=== PATIENT | female | born 1960 | race Caucasian/White ===

== ENCOUNTER 2020-01-12 22:44 | Emergency (ER) | payer BC ==
[2020-01-12] MEDS ORDERED: Lidocaine 1% 10 ML MDV INJECT ONE ×2 (23:21→23:48)
--- NOTE | 2020-01-13 00:08 | EDM.PDOC ---
ED HPI GENERAL MEDICAL PROBLEM - General Chief Complaint: Laceration Stated Complaint: LEFT HAND LACERATION Time Seen by Provider: 01/12/20 23:01 - History of Present Illness INITIAL COMMENTS - FREE TEXT/NARRATIVE: 59-year-old female presents to the emergency room with a left hand injury. This pleasant but unfortunate female fell on the cement sustaining a good-sized laceration on the ulnar aspect of her left hand. She also scraped her right hand but this is not bothering her too much. She denies any other injuries associated with this unfortunate mishap. She did not bump her head strain her neck and did not sustain any loss of consciousness. She is uncertain when her last tetanus shot was. Left Hand Pain Score (Numeric/FACES): 9 - Related Data Allergies Allergy/AdvReac Type Severity Reaction Status Date / Time Penicillins Allergy Severe Cannot Verified 01/12/20 22:50 Remember Sulfa (Sulfonamide Allergy Severe Cannot Verified 01/12/20 22:50 Antibiotics) Remember Home Meds: Home Meds Aspirin [Halfprin] 81 mg PO DAILY 01/17/16 [History] Hydrochlorothiazide 12.5 mg PO DAILY 01/17/16 [History] Lisinopril 10 mg PO DAILY 01/17/16 [History] Omeprazole [Prilosec] 20 mg PO DAILY #14 capsule. 01/17/16 [Rx] Ondansetron [Zofran ODT] 4 mg PO Q4H 01/17/16 [History] buPROPion [Wellbutrin SR] 300 mg PO DAILY 01/17/16 [History] Past Medical History HEENT History: Reports: Cataract Cardiovascular History: Reports: Hypertension Respiratory History: Reports: Asthma Gastrointestinal History: Reports: GERD Musculoskeletal History: Reports: Fracture - Past Surgical History HEENT Surgical History: Reports: Cataract Surgery GI Surgical History: Reports: Hernia Repair/Other Neurological Surgical History: Reports: Lumbar Spine Social & Family History - Tobacco Use Smoking Status *Q: Current Every Day Smoker Years of Tobacco use: 30 Packs/Tins Daily: 1 - Recreational Drug Use Recreational Drug Use: No ED ROS GENERAL - Review of Systems Review Of Systems: See Below Constitutional: Reports: No Symptoms HEENT: Reports: No Symptoms Respiratory: Reports: No Symptoms Cardiovascular: Reports: No Symptoms Endocrine: Reports: No Symptoms GI/Abdominal: Reports: No Symptoms ED EXAM, SKIN/RASH Exam: See Below Exam Limited By: No Limitations General Appearance: Alert, No Apparent Distress Head: Atraumatic, Normocephalic Neck: Normal Inspection, Supple, Non-Tender, Full Range of Motion Respiratory/Chest: No Respiratory Distress, Lungs Clear, Normal Breath Sounds Cardiovascular: Normal Peripheral Pulses, Regular Rate, Rhythm, No Edema GI/Abdominal: Normal Bowel Sounds, Soft, Non-Tender Extremities: Other (Provisional abrasion on the dorsum of her right wrist. She demonstrates good range of motion neurovascular status of the hand is normal emanation of the left hand shows a 5 cm chevron shaped laceration just proximal to the fifth metacarpal phalangeal joint mostly ulnar aspect has a little palmar involvement. Vascular status of this hand is normal she demonstrates intact ligamentous integrity) ED SKIN PROCEDURES - Laceration/Wound Repair Left Medial Ventral Hand Appearance: Subcutaneous, Stellate, Clean Distal NVT: Neuro & Vascular Intact, No Tendon Injury Anesthetic Type: Digital (Proximal digital type block proximal to the metacarpal phalangeal joint) Local Anesthesia - Lidocaine (Xylocaine): 1% Plain Local Anesthetic Volume: 5cc Skin Prep: Saline Exploration/Debridement/Repair: Wound Explored, In a Bloodless Field, Explored to Base Closed with: Sutures Lac/Wound length In cm: 5 Suture Size: 3-0 # of Sutures: 8 (7 horizontal mattress 1 simple) Suture Type: Nylon # of Sutures: 0 Tetanus Status Addressed: Yes (Tetanus was updated today) Complications: No Course - Vital Signs Last Recorded V/S: Last Vital Signs Temp 36.2 C 01/12/20 22:50 Pulse 85 01/12/20 23:17 Resp 18 01/12/20 23:17 BP 167/110 H 01/12/20 23:17 Pulse Ox 94 L 01/12/20 23:17 - Orders/Labs/Meds Meds: Medications Discontinued Medications Generic Name Dose Route Start Last Admin Trade Name Freq PRN Reason Stop Dose Admin Lidocaine HCl 10 ml 01/12/20 23:21 01/12/20 23:25 Xylocaine 1% INJECT 01/12/20 23:22 10 ml ONETIME ONE Administration Lidocaine HCl 10 ml 01/12/20 23:48 01/12/20 23:54 Xylocaine 1% INJECT 01/12/20 23:49 10 ml ONETIME ONE Administration Departure - Departure Time of Disposition: 00:28 Disposition: Home, Self-Care 01 Clinical Impression: Laceration of left hand - Discharge Information Referrals: Sabrina Bobby PA-C [Primary Care Provider] - Forms: ED Department Discharge Additional Instructions: Return to the emergency room with any questions problems or worsening symptoms. Return with any signs of infection. Keep the wound absolutely clean and dry for the next 48 hours then you can let water gently roll over the area but only for a few seconds and then gently dab dry. Wear the splint for at least 1 week and then advance activity slowly and gently. After the sutures are removed in 12 to 14 days wear the splint again for another week and then advance activity slowly and gently. Sepsis Event Note - Evaluation Sepsis Screening Result: No Definite Risk - Focused Exam Vital Signs: Vital Signs Temp Pulse Resp BP Pulse Ox 01/12/20 23:17 85 18 167/110 H 94 L 01/12/20 22:50 36.2 C 95 18 184/106 H 96 Date Exam was Performed: 01/13/20 Time Exam was Performed: 00:09
[2020-01-13] MEDS ORDERED: Diphtheria,Pertussis(Acell),Tetanus Vaccine 0.5 ML Syringe IM ONE (00:09)
[2020-01-13 00:20] VITALS: BP 170/91; PULSE 81
== END 2020-01-13 00:37 | disposition home or self-care (01) ==
LOC: JD.ED 22:44
DX: S61.412A Laceration without foreign body of left hand, initial encounter (principal); I10 Essential (primary) hypertension; J45.909 Unspecified asthma, uncomplicated; K21.9 Gastro-esophageal reflux disease without esophagitis; F17.210 Nicotine dependence, cigarettes, uncomplicated; Z79.899 Other long term (current) drug therapy; Z88.0 Allergy status to penicillin; Z88.2 Allergy status to sulfonamides; Z23 Encounter for immunization; W26.8XXA Contact with other sharp object(s), not elsewhere classified, initial encounter
CPT/HCPCS: 12002; 90471; 90715; 99282; J2001

== ENCOUNTER 2020-06-20 12:11 | Inpatient (IN) | payer BC ==
[2020-06-20] MEDS ORDERED: Ondansetron 4 MG/2 ML SDV IVPUSH ONE (12:27)
[2020-06-20] MEDS ORDERED: Sodium Chloride 0.9% 1,000 ML IV STA (12:27)
[2020-06-20] MEDS ORDERED: Sodium Chloride 0.9% 10 ML Syringe FLUSH PRN ×2 (12:27→13:19)
[2020-06-20] MEDS ORDERED: HYDROmorphone 1 MG/ML Syringe IVPUSH ONE ×4 (12:29→15:52)
[2020-06-20] MEDS ORDERED: Diatrizoate Meglumine/Diatrizoate Sodium 37% 120 ML Bottle PO ONE (13:19)
[2020-06-20] MEDS ORDERED: Iopamidol 612 MG/ML 100 ML Bottle IVPUSH ONE (13:19)
[2020-06-20] MEDS ORDERED: metroNIDAZOLE/Normal Saline 500 MG in Premix Bag 1 BAG IV ONE (15:09)
[2020-06-20] MEDS ORDERED: Levofloxacin/Dextrose 5%-Water 500 MG in Premix Bag 1 BAG IV ONE (15:10)
[2020-06-20] MEDS ORDERED: Pantoprazole 40 MG Vial IVPUSH ONE (15:16)
--- NOTE | 2020-06-20 15:30 | PCM.PREANE ---
Preanesthetic Assessment - Procedure Proposed Procedure: Exploratory Laparatomy - Anesthesia/Transfusion/Family Hx Anesthesia History: Prior Anesthesia Without Reaction Family History of Anesthesia Reaction: No Transfusion History: Prior Transfusion Without Reaction Intubation History: Unknown - Review of Systems General: No Symptoms Pulmonary: No Symptoms (COPD-current smoker: 1ppd times 35 years) Cardiovascular: No Symptoms (HTN) Gastrointestinal: No Symptoms (GERD-controlled), Constipation Neurological: No Symptoms, Tingling (right hand) Other: Reports: None - Physical Assessment NPO Status Date: 06/20/20 NPO Status Time: 07:00 Vital Signs: Last Vital Signs Temp 35.7 C L 06/20/20 12:16 Pulse 77 06/20/20 15:03 Resp 16 06/20/20 15:03 BP 110/74 06/20/20 15:03 Pulse Ox 96 06/20/20 15:03 Height: 1.65 m Weight: 95.254 kg ASA Class: 3E Mental Status: Alert & Oriented x3 Airway Class: Mallampati = 2 Dentition: Reports: Normal Dentition, Volente(s), Caries Thyro-Mental Finger Breadths: 3 Mouth Opening Finger Breadths: 3 ROM/Head Extension: Full Lungs: Clear to Auscultation, Normal Respiratory Effort, Decreased Breath Sounds Cardiovascular: Regular Rate, Regular Rhythm, No Murmurs - Lab Values: Laboratory Last Values WBC 9.78 K/mm3 (3.98-10.04) 06/20/20 13:00 RBC 4.62 M/mm3 (3.98-5.22) 06/20/20 13:00 Hgb 14.7 gm/dl (11.2-15.7) 06/20/20 13:00 Hct 45.4 % (34.1-44.9) H 06/20/20 13:00 MCV 98.3 fl (79.4-94.8) H 06/20/20 13:00 MCH 31.8 pg (25.6-32.2) 06/20/20 13:00 MCHC 32.4 g/dl (32.2-35.5) 06/20/20 13:00 RDW Std Deviation 48.7 fL (36.4-46.3) H 06/20/20 13:00 Plt Count 266 K/mm3 (182-369) 06/20/20 13:00 MPV 8.6 fl (9.4-12.3) L 06/20/20 13:00 Neut % (Auto) 83.3 % (34.0-71.1) H 06/20/20 13:00 Lymph % (Auto) 10.1 % (19.3-51.7) L 06/20/20 13:00 [place] % (Auto) 5.6 % (4.7-12.5) 06/20/20 13:00 Eos % (Auto) 0.7 (0.7-5.8) 06/20/20 13:00 Baso % (Auto) 0.1 % (0.1-1.2) 06/20/20 13:00 Neut # (Auto) 8.14 K/mm3 (1.56-6.13) H 06/20/20 13:00 Lymph # (Auto) 0.99 K/mm3 (1.18-3.74) L 06/20/20 13:00 [place] # (Auto) 0.55 K/mm3 (0.24-0.36) H 06/20/20 13:00 Eos # (Auto) 0.07 K/mm3 (0.04-0.36) 06/20/20 13:00 Baso # (Auto) 0.01 K/mm3 (0.01-0.08) 06/20/20 13:00 Sodium 140 mEq/L (136-145) 06/20/20 13:00 Potassium 3.3 mEq/L (3.5-5.1) L 06/20/20 13:00 Chloride 103 mEq/L (98-107) 06/20/20 13:00 Carbon Dioxide 25 mEq/L (21-32) 06/20/20 13:00 Anion Gap 15.3 (5-15) H 06/20/20 13:00 BUN 24 mg/dL (7-18) H D 06/20/20 13:00 Creatinine 1.1 mg/dL (0.55-1.02) H 06/20/20 13:00 Est Cr Clr Drug Dosing 47.72 mL/min 06/20/20 13:00 Estimated GFR (MDRD) 50 mL/min (>60) 06/20/20 13:00 BUN/Creatinine Ratio 21.8 (14-18) H 06/20/20 13:00 Glucose 133 mg/dL (80-115) H 06/20/20 13:00 Calcium 10.3 mg/dL (8.5-10.1) H 06/20/20 13:00 Total Bilirubin 0.7 mg/dL (0.2-1.0) 06/20/20 13:00 AST 38 U/L (15-37) H 06/20/20 13:00 ALT 66 U/L (14-59) H 06/20/20 13:00 Alkaline Phosphatase 84 U/L (46-116) 06/20/20 13:00 Troponin I < 0.017 ng/mL (0.00-0.056) 06/20/20 13:00 Total Protein 7.5 g/dl (6.4-8.2) 06/20/20 13:00 Albumin 3.8 g/dl (3.4-5.0) 06/20/20 13:00 Globulin 3.7 gm/dL 06/20/20 13:00 Albumin/Globulin Ratio 1.0 (1-2) 06/20/20 13:00 Lipase 178 U/L (73-393) 06/20/20 13:00 Urine Color Yellow (Yellow) 06/20/20 15:15 Urine Appearance Clear (Clear) 06/20/20 15:15 Urine pH 6.0 (5.0-8.0) 06/20/20 15:15 Ur Specific [place] 1.015 (1.005-1.030) 06/20/20 15:15 Urine Protein Trace (Negative) H 06/20/20 15:15 Urine Glucose (UA) Negative (Negative) 06/20/20 15:15 Urine Ketones Negative (Negative) 06/20/20 15:15 Urine Occult Blood Trace-lysed (Negative) H 06/20/20 15:15 Urine Nitrite Negative (Negative) 06/20/20 15:15 Urine Bilirubin Negative (Negative) 06/20/20 15:15 Urine Urobilinogen 0.2 (0.2-1.0) 06/20/20 15:15 Ur Leukocyte Esterase Negative (Negative) 06/20/20 15:15 All labs reviewed and noted and within acceptable ranges to proceed with procedure. - Imaging/EKG Impressions: EKG:Atrial fibrillation rate 144 ( telemetry showed SR rate=88 - Allergies Allergies/Adverse Reactions: Allergies Allergy/AdvReac Type Severity Reaction Status Date / Time Penicillins Allergy Severe Cannot Verified 06/20/20 12:20 Remember Sulfa (Sulfonamide Allergy Severe Cannot Verified 06/20/20 12:20 Antibiotics) Remember - Anesthesia Plan Pre-Op Medication Ordered: None - Acknowledgements Anesthesia Type Planned: General Anesthesia Pt an Appropriate Candidate for the Planned Anesthesia: Yes Alternatives and Risks of Anesthesia Discussed w Pt/Guardian: Yes Pt/Guardian Understands and Agrees with Anesthesia Plan: Yes PreAnesthesia Questionnaire HEENT History: Reports: Cataract Cardiovascular History: Reports: Hypertension Respiratory History: Reports: Asthma Gastrointestinal History: Reports: GERD Musculoskeletal History: Reports: Fracture Endocrine/Metabolic History: Reports: Obesity/BMI 30+ - Past Surgical History HEENT Surgical History: Reports: Cataract Surgery GI Surgical History: Reports: Hernia Repair/Other Female Surgical History: Reports: Hysterectomy Neurological Surgical History: Reports: Lumbar Spine - SUBSTANCE USE Smoking Status *Q: Current Every Day Smoker Recreational Drug Use History: No - HOME MEDS Home Medications: Home Meds Hydrochlorothiazide 12.5 mg PO DAILY 01/17/16 [History] Ondansetron [Zofran ODT] 4 mg PO Q4H 01/17/16 [History] Hydrocodone/Acetaminophen [Hydrocodone-Acetamin 5-325 mg] 1 each PO Q4HR PRN 06/20/20 [History] - CURRENT (IN HOUSE) MEDS Current Meds: Current Medications Metronidazole 500 mg/ Premix 100 mls @ 100 mls/hr IV ONETIME ONE Stop: 06/20/20 16:08 Levofloxacin/Dextrose 500 mg/ (Premix) 100 mls @ 100 mls/hr IV ONETIME ONE Stop: 06/20/20 16:09 Sodium Chloride (Saline Flush) 10 ml FLUSH ASDIRECTED PRN PRN Reason: Keep Vein Open Last Admin: 06/20/20 12:52 Dose: 10 ml Documented by: Sodium Chloride (Saline Flush) 10 ml FLUSH ONETIME PRN PRN Reason: IV FLUSH Last Admin: 06/20/20 14:38 Dose: 10 ml Documented by: Discontinued Medications Diatrizoate Meglum/Diatrizoate Sod (Gastrografin 37%) 120 ml PO ONETIME ONE Stop: 06/20/20 13:20 Last Admin: 06/20/20 14:38 Dose: 120 ml Documented by: Hydromorphone HCl (Dilaudid) 1 mg IVPUSH ONETIME ONE Stop: 06/20/20 12:30 Last Admin: 06/20/20 12:50 Dose: 1 mg Documented by: Hydromorphone HCl (Dilaudid) 1 mg IVPUSH ONETIME ONE Stop: 06/20/20 13:23 Last Admin: 06/20/20 13:26 Dose: 1 mg Documented by: Hydromorphone HCl (Dilaudid) 1 mg IVPUSH ONETIME ONE Stop: 06/20/20 14:53 Last Admin: 06/20/20 14:56 Dose: 1 mg Documented by: Sodium Chloride (Normal Saline) 1,000 mls @ 1,000 mls/hr IV .BOLUS STA Stop: 06/20/20 13:26 Last Admin: 06/20/20 12:52 Dose: 1,000 mls/hr Documented by: Iopamidol (Isovue-300 (61%)) 100 ml IVPUSH ONETIME ONE Stop: 06/20/20 13:20 Last Admin: 06/20/20 14:38 Dose: 100 ml Documented by: Ondansetron HCl (Zofran) 4 mg IVPUSH ONETIME ONE Stop: 06/20/20 12:28 Last Admin: 06/20/20 12:52 Dose: 4 mg Documented by: Pantoprazole Sodium (Protonix Iv) 40 mg IVPUSH ONETIME ONE Stop: 06/20/20 15:17
--- NOTE | 2020-06-20 15:35 | PCM.HP.2 ---
H&P History of Present Illness - General Date of Service: 06/20/20 Admit Problem/Dx: perforated gastric ulcer Source of Information: Patient History Limitations: Reports: No Limitations - History of Present Illness Onset of Symptoms: Reports: Today Duration of Symptoms: Reports: Hour(s): Other HPI/Comments: Ms. Mayen is a 60 yo woman with history of chronic NSAID use and smoking who presents with severe epigastric pain that began this morning after breakfast. Workup in the ER is significant for CT finding of pneumoperitoneum and inflammatory changes noted near the gastroduodenal junction. The patient denies history of peptic ulcer disease. She has had an upper endoscopy before, she can't remember why, but she states no abnormalities were noted. She has no personal history of cancer. She has had no prior abdominal operations. She denies any cardiac or pulmonary problems; she occasionally uses an inhaler. Vitals are normal at the time of assessment. Abdomen Pain Score (Numeric/FACES): 10 - Related Data Allergies/Adverse Reactions: Allergies Allergy/AdvReac Type Severity Reaction Status Date / Time Penicillins Allergy Severe Cannot Verified 06/20/20 12:20 Remember Sulfa (Sulfonamide Allergy Severe Cannot Verified 06/20/20 12:20 Antibiotics) Remember Home Medications: Home Meds Hydrochlorothiazide 12.5 mg PO DAILY 01/17/16 [History] Ondansetron [Zofran ODT] 4 mg PO Q4H 01/17/16 [History] Hydrocodone/Acetaminophen [Hydrocodone-Acetamin 5-325 mg] 1 each PO Q4HR PRN 06/20/20 [History] Past Medical History HEENT History: Reports: Cataract Cardiovascular History: Reports: Hypertension Respiratory History: Reports: Asthma Gastrointestinal History: Reports: GERD Musculoskeletal History: Reports: Fracture Endocrine/Metabolic History: Reports: Obesity/BMI 30+ - Past Surgical History HEENT Surgical History: Reports: Cataract Surgery GI Surgical History: Reports: Hernia Repair/Other Female Surgical History: Reports: Hysterectomy Neurological Surgical History: Reports: Lumbar Spine Social & Family History - Tobacco Use Smoking Status *Q: Current Every Day Smoker Years of Tobacco use: 40 Packs/Tins Daily: 1 - Caffeine Use Caffeine Use: Reports: Coffee - Recreational Drug Use Recreational Drug Use: No H&P Review of Systems - Review of Systems: Review Of Systems: See Below General: Reports: Malaise HEENT: Reports: No Symptoms Pulmonary: Reports: No Symptoms Cardiovascular: Reports: No Symptoms Gastrointestinal: Reports: Abdominal Pain, Nausea Genitourinary: Reports: No Symptoms Musculoskeletal: Reports: No Symptoms Skin: Reports: No Symptoms Psychiatric: Reports: No Symptoms Neurological: Reports: No Symptoms Hematologic/Lymphatic: Reports: No Symptoms Immunologic: Reports: No Symptoms Exam - Exam Exam: See Below - Vital Signs Vital Signs: Last Vital Signs Temp 35.7 C L 06/20/20 12:16 Pulse 77 06/20/20 15:03 Resp 16 06/20/20 15:03 BP 110/74 06/20/20 15:03 Pulse Ox 96 06/20/20 15:03 Weight: 95.254 kg - Exam Quality Assessment: Supplemental Oxygen General: Alert, Oriented, Moderate Distress HEENT: Conjunctiva Clear, Other (right surgical pupil) Neck: Trachea Midline Lungs: Clear to Auscultation Cardiovascular: Regular Rate, Regular Rhythm GI/Abdominal Exam: Guarding, Tender (Female) Exam: Deferred Rectal (Female) Exam: Deferred Extremities: Normal Inspection Skin: Warm, Dry Neuro Extensive - Mental Status: Alert, Oriented x3 Psychiatric: Anxious - Patient Data Lab Results Last 24 hrs: Laboratory Results - last 24 hr 06/20/20 06/20/20 06/20/20 Range/Units 13:00 13:00 13:00 WBC 9.78 (3.98-10.04) K/mm3 RBC 4.62 (3.98-5.22) M/mm3 Hgb 14.7 (11.2-15.7) gm/dl Hct 45.4 H (34.1-44.9) % MCV 98.3 H (79.4-94.8) fl MCH 31.8 (25.6-32.2) pg MCHC 32.4 (32.2-35.5) g/dl RDW Std Deviation 48.7 H (36.4-46.3) fL Plt Count 266 (182-369) K/mm3 MPV 8.6 L (9.4-12.3) fl Neut % (Auto) 83.3 H (34.0-71.1) % Lymph % (Auto) 10.1 L (19.3-51.7) % [place] % (Auto) 5.6 (4.7-12.5) % Eos % (Auto) 0.7 (0.7-5.8) Baso % (Auto) 0.1 (0.1-1.2) % Neut # (Auto) 8.14 H (1.56-6.13) K/mm3 Lymph # (Auto) 0.99 L (1.18-3.74) K/mm3 [place] # (Auto) 0.55 H (0.24-0.36) K/mm3 Eos # (Auto) 0.07 (0.04-0.36) K/mm3 Baso # (Auto) 0.01 (0.01-0.08) K/mm3 Sodium 140 (136-145) mEq/L Potassium 3.3 L (3.5-5.1) mEq/L Chloride 103 (98-107) mEq/L Carbon Dioxide 25 (21-32) mEq/L Anion Gap 15.3 H (5-15) BUN 24 H D (7-18) mg/dL Creatinine 1.1 H (0.55-1.02) mg/dL Est Cr Clr Drug Dosing 47.72 mL/min Estimated GFR (MDRD) 50 (>60) mL/min BUN/Creatinine Ratio 21.8 H (14-18) Glucose 133 H (80-115) mg/dL Calcium 10.3 H (8.5-10.1) mg/dL Total Bilirubin 0.7 (0.2-1.0) mg/dL AST 38 H (15-37) U/L ALT 66 H (14-59) U/L Alkaline Phosphatase 84 (46-116) U/L Troponin I < 0.017 (0.00-0.056) ng/mL Total Protein 7.5 (6.4-8.2) g/dl Albumin 3.8 (3.4-5.0) g/dl Globulin 3.7 gm/dL Albumin/Globulin Ratio 1.0 (1-2) Lipase 178 (73-393) U/L Urine Color (Yellow) Urine Appearance (Clear) Urine pH (5.0-8.0) Ur Specific [place] (1.005-1.030) Urine Protein (Negative) Urine Glucose (UA) (Negative) Urine Ketones (Negative) Urine Occult Blood (Negative) Urine Nitrite (Negative) Urine Bilirubin (Negative) Urine Urobilinogen (0.2-1.0) Ur Leukocyte Esterase (Negative) 06/20/20 Range/Units 15:15 WBC (3.98-10.04) K/mm3 RBC (3.98-5.22) M/mm3 Hgb (11.2-15.7) gm/dl Hct (34.1-44.9) % MCV (79.4-94.8) fl MCH (25.6-32.2) pg MCHC (32.2-35.5) g/dl RDW Std Deviation (36.4-46.3) fL Plt Count (182-369) K/mm3 MPV (9.4-12.3) fl Neut % (Auto) (34.0-71.1) % Lymph % (Auto) (19.3-51.7) % [place] % (Auto) (4.7-12.5) % Eos % (Auto) (0.7-5.8) Baso % (Auto) (0.1-1.2) % Neut # (Auto) (1.56-6.13) K/mm3 Lymph # (Auto) (1.18-3.74) K/mm3 [place] # (Auto) (0.24-0.36) K/mm3 Eos # (Auto) (0.04-0.36) K/mm3 Baso # (Auto) (0.01-0.08) K/mm3 Sodium (136-145) mEq/L Potassium (3.5-5.1) mEq/L Chloride (98-107) mEq/L Carbon Dioxide (21-32) mEq/L Anion Gap (5-15) BUN (7-18) mg/dL Creatinine (0.55-1.02) mg/dL Est Cr Clr Drug Dosing mL/min Estimated GFR (MDRD) (>60) mL/min BUN/Creatinine Ratio (14-18) Glucose (80-115) mg/dL Calcium (8.5-10.1) mg/dL Total Bilirubin (0.2-1.0) mg/dL AST (15-37) U/L ALT (14-59) U/L Alkaline Phosphatase (46-116) U/L Troponin I (0.00-0.056) ng/mL Total Protein (6.4-8.2) g/dl Albumin (3.4-5.0) g/dl Globulin gm/dL Albumin/Globulin Ratio (1-2) Lipase (73-393) U/L Urine Color Yellow (Yellow) Urine Appearance Clear (Clear) Urine pH 6.0 (5.0-8.0) Ur Specific [place] 1.015 (1.005-1.030) Urine Protein Trace H (Negative) Urine Glucose (UA) Negative (Negative) Urine Ketones Negative (Negative) Urine Occult Blood Trace-lysed H (Negative) Urine Nitrite Negative (Negative) Urine Bilirubin Negative (Negative) Urine Urobilinogen 0.2 (0.2-1.0) Ur Leukocyte Esterase Negative (Negative) Result Diagrams: 06/20/20 13:00 06/20/20 13:00 Sepsis Event Note - Evaluation Sepsis Screening Result: No Definite Risk - Focused Exam Vital Signs: Vital Signs Temp Pulse Resp BP Pulse Ox 06/20/20 15:03 77 16 110/74 96 06/20/20 12:16 35.7 C L 139 H 24 H 143/97 H 94 L Problem List Initiated/Reviewed/Updated: Yes Orders Last 24hrs: Active Orders 24 hr Category Date Time Status EKG Documentation Completion [RC] ASDIRECTED Care 06/20/20 13:21 Active Peripheral IV Care [RC] . DIRECTED Care 06/20/20 12:28 Active Abdomen Pelvis w Cont [CT] Stat Exams 06/20/20 12:27 Taken CORONAVIRUS COVID-19 RAPID [MOLEC] Stat Lab 06/20/20 15:07 Ordered UA W/MICROSCOPIC [URIN] Stat Lab 06/20/20 15:15 Results Levofloxacin/Dextrose 5%-Water [Levaquin in D5W 500 MG/ Med 06/20/20 15:10 Active 100 ML] 500 mg Premix Bag 1 bag IV ONETIME Sodium Chloride 0.9% [Saline Flush] Med 06/20/20 12:27 Active 10 ml FLUSH ASDIRECTED PRN Sodium Chloride 0.9% [Saline Flush] Med 06/20/20 13:19 Active 10 ml FLUSH ONETIME PRN metroNIDAZOLE/Normal Saline [Flagyl 500 MG in NS 100 ML Med 06/20/20 15:09 Active ] 500 mg Premix Bag 1 bag IV ONETIME ED Antiemetic Medication Reflex [OM.PC] Stat Oth 06/20/20 12:28 Ordered Peripheral IV Insertion Adult [OM.PC] Stat Oth 06/20/20 12:27 Ordered EKG 12 Lead [EK] Stat Ther 06/20/20 13:21 Ordered Medication Orders Metronidazole 500 mg/ Premix 100 mls @ 100 mls/hr IV ONETIME ONE Stop: 06/20/20 16:08 Levofloxacin/Dextrose 500 mg/ (Premix) 100 mls @ 100 mls/hr IV ONETIME ONE Stop: 06/20/20 16:09 Last Admin: 06/20/20 15:23 Dose: 100 mls/hr Documented by: JAIR Sodium Chloride (Saline Flush) 10 ml FLUSH ASDIRECTED PRN PRN Reason: Keep Vein Open Last Admin: 06/20/20 12:52 Dose: 10 ml Documented by: ANANDOKAPamela Sodium Chloride (Saline Flush) 10 ml FLUSH ONETIME PRN PRN Reason: IV FLUSH Last Admin: 06/20/20 14:38 Dose: 10 ml Documented by: TEX Assessment/Plan Comment:: Perforated gastric ulcer; risk factors include smoking, noncompliance with PPI, chronic NSAID use. Clinically stable. Plan for emergent laparoscopic exploration and primary repair of ulcer with omental patch- however, I discussed the possibility of need for laparotomy and possible antrectomy if the ulcer is large and not amenable to primary repair. In the interim, IV protonix, levofloxacin and flagyl are ordered. WIll place NG tube pre-operatively for gastric decompression.
[2020-06-20] MEDS ORDERED: Bupivacaine 0.5%/EPINEPHrine 1:200,000 50 ML MDV ONE (15:41)
[2020-06-20] MEDS ORDERED: Propofol 200 MG/20 ML SDV ONE (15:47)
[2020-06-20] MEDS ORDERED: Rocuronium 50 MG/5 ML Vial ONE (15:49)
[2020-06-20] MEDS ORDERED: Ondansetron 4 MG/2 ML SDV ONE (15:49)
[2020-06-20] MEDS ORDERED: Lidocaine 1% 4 ML ONE (15:49)
[2020-06-20] MEDS ORDERED: Dexamethasone 4 MG/ML 5 ML MDV ONE (15:49)
[2020-06-20] MEDS ORDERED: HYDROmorphone 1 MG/ML Syringe ONE (15:51)
[2020-06-20] MEDS ORDERED: fentaNYL 250 MCG/5 ML SDV ONE (15:55)
[2020-06-20] MEDS ORDERED: Ketamine 500 mg/10 ML MDV ONE (15:57)
[2020-06-20] MEDS ORDERED: Midazolam 1 MG/ML 2 ML SDV ONE (16:03)
--- NOTE | 2020-06-20 16:08 | EDM.PDOC ---
ED HPI GENERAL MEDICAL PROBLEM - General Chief Complaint: Abdominal Pain Stated Complaint: [facility] Time Seen by Provider: 06/20/20 12:19 Source of Information: Reports: Patient History Limitations: Reports: No Limitations - History of Present Illness INITIAL COMMENTS - FREE TEXT/NARRATIVE: The patient presents by [facility] for upper abdominal pain. This s tarted this morning after eating [employer]. She has no nausea or vomiting. She has no diarrhea. She says this has never happened to her before. The pain is in the left upper abdomen and epigastric area. She still has her gallbladder and appendix. She has no fever, chills, cough, congestion, runny nose, chest pain, shortness of breath, diarrhea or dysuria. Onset: Today Duration: Hour(s): Location: Reports: Abdomen Quality: Reports: Sharp Severity: Severe Improves with: Reports: None Worsens with: Reports: None Associated Symptoms: Reports: No Other Symptoms Abdomen Pain Score (Numeric/FACES): 10 - Related Data Allergies Allergy/AdvReac Type Severity Reaction Status Date / Time Penicillins Allergy Severe Cannot Verified 06/20/20 12:20 Remember Sulfa (Sulfonamide Allergy Severe Cannot Verified 06/20/20 12:20 Antibiotics) Remember Home Meds: Home Meds Hydrochlorothiazide 12.5 mg PO DAILY 01/17/16 [History] Ondansetron [Zofran ODT] 4 mg PO Q4H 01/17/16 [History] Hydrocodone/Acetaminophen [Hydrocodone-Acetamin 5-325 mg] 1 each PO Q4HR PRN 06/20/20 [History] Past Medical History HEENT History: Reports: Cataract Cardiovascular History: Reports: Hypertension Respiratory History: Reports: Asthma Gastrointestinal History: Reports: GERD Musculoskeletal History: Reports: Fracture Endocrine/Metabolic History: Reports: Obesity/BMI 30+ - Past Surgical History HEENT Surgical History: Reports: Cataract Surgery GI Surgical History: Reports: Hernia Repair/Other Female Surgical History: Reports: Hysterectomy Neurological Surgical History: Reports: Lumbar Spine Social & Family History - Tobacco Use Smoking Status *Q: Current Every Day Smoker Years of Tobacco use: 40 Packs/Tins Daily: 1 - Caffeine Use Caffeine Use: Reports: Coffee - Recreational Drug Use Recreational Drug Use: No ED ROS GENERAL - Review of Systems Review Of Systems: See Below Constitutional: Reports: No Symptoms HEENT: Reports: No Symptoms Respiratory: Reports: No Symptoms Cardiovascular: Reports: No Symptoms Endocrine: Reports: No Symptoms GI/Abdominal: Reports: Abdominal Pain. Denies: Diarrhea, Nausea, Vomiting : Reports: No Symptoms Musculoskeletal: Reports: No Symptoms Skin: Reports: No Symptoms ED EXAM, GI/ABD - Physical Exam Exam: See Below Exam Limited By: No Limitations General Appearance: Alert, Moderate Distress Ears: Normal External Exam Nose: Normal Inspection Head: Atraumatic, Normocephalic Neck: Normal Inspection Respiratory/Chest: No Respiratory Distress, Lungs Clear, Normal Breath Sounds Cardiovascular: Regular Rate, Rhythm, No Edema, No Murmur GI/Abdominal Exam: Soft, No Organomegaly, Tender (Moderate to severe epigasatric and left upper abdominal pain) Back Exam: Normal Inspection Extremities: Normal Inspection Course - Vital Signs Last Recorded V/S: Last Vital Signs Temp 98.4 F 06/20/20 16:05 Pulse 100 06/20/20 16:05 Resp 14 06/20/20 16:05 BP 98/56 L 06/20/20 16:05 Pulse Ox 100 06/20/20 16:05 - Orders/Labs/Meds Orders: Active Orders 24 hr Category Date Time Status Admission Status [Patient Status] [ADT] Routine ADT 06/20/20 15:37 Active EKG Documentation Completion [RC] ASDIRECTED Care 06/20/20 13:21 Active Peripheral IV Care [RC] . DIRECTED Care 06/20/20 12:28 Active Abdomen Pelvis w Cont [CT] Stat Exams 06/20/20 12:27 Taken CORONAVIRUS COVID-19 CELESTE [MOLEC] Stat Lab 06/20/20 14:50 Received Sodium Chloride 0.9% [Saline Flush] Med 06/20/20 12:27 Active 10 ml FLUSH ASDIRECTED PRN Sodium Chloride 0.9% [Saline Flush] Med 06/20/20 13:19 Active 10 ml FLUSH ONETIME PRN ED Antiemetic Medication Reflex [OM.PC] Stat Oth 06/20/20 12:28 Ordered Peripheral IV Insertion Adult [OM.PC] Stat Oth 06/20/20 12:27 Ordered Schedule Procedure [COMM] Routine Oth 06/20/20 15:41 Ordered Schedule Procedure [COMM] Stat Oth 06/20/20 15:37 Ordered EKG 12 Lead [EK] Stat Ther 06/20/20 13:21 Ordered Medication Orders Sodium Chloride (Saline Flush) 10 ml FLUSH ASDIRECTED PRN PRN Reason: Keep Vein Open Last Admin: 06/20/20 12:52 Dose: 10 ml Documented by: JAIR Sodium Chloride (Saline Flush) 10 ml FLUSH ONETIME PRN PRN Reason: IV FLUSH Last Admin: 06/20/20 14:38 Dose: 10 ml Documented by: TEX Labs: Laboratory Tests 06/20/20 06/20/20 06/20/20 Range/Units 13:00 13:00 13:00 WBC 9.78 (3.98-10.04) K/mm3 RBC 4.62 (3.98-5.22) M/mm3 Hgb 14.7 (11.2-15.7) gm/dl Hct 45.4 H (34.1-44.9) % MCV 98.3 H (79.4-94.8) fl MCH 31.8 (25.6-32.2) pg MCHC 32.4 (32.2-35.5) g/dl RDW Std Deviation 48.7 H (36.4-46.3) fL Plt Count 266 (182-369) K/mm3 MPV 8.6 L (9.4-12.3) fl Neut % (Auto) 83.3 H (34.0-71.1) % Lymph % (Auto) 10.1 L (19.3-51.7) % [place] % (Auto) 5.6 (4.7-12.5) % Eos % (Auto) 0.7 (0.7-5.8) Baso % (Auto) 0.1 (0.1-1.2) % Neut # (Auto) 8.14 H (1.56-6.13) K/mm3 Lymph # (Auto) 0.99 L (1.18-3.74) K/mm3 [place] # (Auto) 0.55 H (0.24-0.36) K/mm3 Eos # (Auto) 0.07 (0.04-0.36) K/mm3 Baso # (Auto) 0.01 (0.01-0.08) K/mm3 Sodium 140 (136-145) mEq/L Potassium 3.3 L (3.5-5.1) mEq/L Chloride 103 (98-107) mEq/L Carbon Dioxide 25 (21-32) mEq/L Anion Gap 15.3 H (5-15) BUN 24 H D (7-18) mg/dL Creatinine 1.1 H (0.55-1.02) mg/dL Est Cr Clr Drug Dosing 47.72 mL/min Estimated GFR (MDRD) 50 (>60) mL/min BUN/Creatinine Ratio 21.8 H (14-18) Glucose 133 H (80-115) mg/dL Calcium 10.3 H (8.5-10.1) mg/dL Total Bilirubin 0.7 (0.2-1.0) mg/dL AST 38 H (15-37) U/L ALT 66 H (14-59) U/L Alkaline Phosphatase 84 (46-116) U/L Troponin I < 0.017 (0.00-0.056) ng/mL Total Protein 7.5 (6.4-8.2) g/dl Albumin 3.8 (3.4-5.0) g/dl Globulin 3.7 gm/dL Albumin/Globulin Ratio 1.0 (1-2) Lipase 178 (73-393) U/L Urine Color (Yellow) Urine Appearance (Clear) Urine pH (5.0-8.0) Ur Specific [place] (1.005-1.030) Urine Protein (Negative) Urine Glucose (UA) (Negative) Urine Ketones (Negative) Urine Occult Blood (Negative) Urine Nitrite (Negative) Urine Bilirubin (Negative) Urine Urobilinogen (0.2-1.0) Ur Leukocyte Esterase (Negative) Urine RBC (0-5) /hpf Urine WBC (0-5) /hpf Ur Squamous Epith Cells (0-5) /hpf Urine Bacteria (FEW) /hpf Urine Mucus (FEW) /hpf SARS CoV-2 RNA Rapid CELESTE (NEGATIVE) 06/20/20 06/20/20 Range/Units 15:15 15:28 WBC (3.98-10.04) K/mm3 RBC (3.98-5.22) M/mm3 Hgb (11.2-15.7) gm/dl Hct (34.1-44.9) % MCV (79.4-94.8) fl MCH (25.6-32.2) pg MCHC (32.2-35.5) g/dl RDW Std Deviation (36.4-46.3) fL Plt Count (182-369) K/mm3 MPV (9.4-12.3) fl Neut % (Auto) (34.0-71.1) % Lymph % (Auto) (19.3-51.7) % [place] % (Auto) (4.7-12.5) % Eos % (Auto) (0.7-5.8) Baso % (Auto) (0.1-1.2) % Neut # (Auto) (1.56-6.13) K/mm3 Lymph # (Auto) (1.18-3.74) K/mm3 [place] # (Auto) (0.24-0.36) K/mm3 Eos # (Auto) (0.04-0.36) K/mm3 Baso # (Auto) (0.01-0.08) K/mm3 Sodium (136-145) mEq/L Potassium (3.5-5.1) mEq/L Chloride (98-107) mEq/L Carbon Dioxide (21-32) mEq/L Anion Gap (5-15) BUN (7-18) mg/dL Creatinine (0.55-1.02) mg/dL Est Cr Clr Drug Dosing mL/min Estimated GFR (MDRD) (>60) mL/min BUN/Creatinine Ratio (14-18) Glucose (80-115) mg/dL Calcium (8.5-10.1) mg/dL Total Bilirubin (0.2-1.0) mg/dL AST (15-37) U/L ALT (14-59) U/L Alkaline Phosphatase (46-116) U/L Troponin I (0.00-0.056) ng/mL Total Protein (6.4-8.2) g/dl Albumin (3.4-5.0) g/dl Globulin gm/dL Albumin/Globulin Ratio (1-2) Lipase (73-393) U/L Urine Color Yellow (Yellow) Urine Appearance Clear (Clear) Urine pH 6.0 (5.0-8.0) Ur Specific [place] 1.015 (1.005-1.030) Urine Protein Trace H (Negative) Urine Glucose (UA) Negative (Negative) Urine Ketones Negative (Negative) Urine Occult Blood Trace-lysed H (Negative) Urine Nitrite Negative (Negative) Urine Bilirubin Negative (Negative) Urine Urobilinogen 0.2 (0.2-1.0) Ur Leukocyte Esterase Negative (Negative) Urine RBC 0-5 (0-5) /hpf Urine WBC 0-5 (0-5) /hpf Ur Squamous Epith Cells 10-20 H (0-5) /hpf Urine Bacteria Few (FEW) /hpf Urine Mucus Few (FEW) /hpf SARS CoV-2 RNA Rapid CELESTE Negative (NEGATIVE) Meds: Medications Generic Name Dose Route Start Last Admin Trade Name Anisa PRN Reason Stop Dose Admin Sodium Chloride 10 ml 06/20/20 12:27 06/20/20 12:52 Saline Flush FLUSH 10 ml ASDIRECTED PRN Administration Keep Vein Open Sodium Chloride 10 ml 06/20/20 13:19 06/20/20 14:38 Saline Flush FLUSH 10 ml ONETIME PRN Administration IV FLUSH Discontinued Medications Generic Name Dose Route Start Last Admin Trade Name Freq PRN Reason Stop Dose Admin Bupivacaine HCl/Epinephrine Bitart Confirm 06/20/20 15:41 Marcaine 0.5%/Epinephrine 1:200,000 Administered 06/20/20 15:42 Dose 50 ml .ROUTE .STK-MED ONE Dexamethasone Confirm 06/20/20 15:49 Dexamethasone Administered 06/20/20 15:50 Dose 20 mg .ROUTE .STK-MED ONE Diatrizoate Meglum/Diatrizoate Sod 120 ml 06/20/20 13:19 06/20/20 14:38 Gastrografin 37% PO 06/20/20 13:20 120 ml ONETIME ONE Administration Fentanyl Confirm 06/20/20 15:55 Sublimaze Administered 06/20/20 15:56 Dose 250 mcg .ROUTE .STK-MED ONE Hydromorphone HCl 1 mg 06/20/20 12:29 06/20/20 12:50 Dilaudid IVPUSH 06/20/20 12:30 1 mg ONETIME ONE Administration Hydromorphone HCl 1 mg 06/20/20 13:22 06/20/20 13:26 Dilaudid IVPUSH 06/20/20 13:23 1 mg ONETIME ONE Administration Hydromorphone HCl 1 mg 06/20/20 14:52 06/20/20 14:56 Dilaudid IVPUSH 06/20/20 14:53 1 mg ONETIME ONE Administration Hydromorphone HCl Confirm 06/20/20 15:51 06/20/20 15:53 Dilaudid Administered 06/20/20 15:52 Not Given Dose 1 mg .ROUTE .STK-MED ONE Hydromorphone HCl 1 mg 06/20/20 15:52 06/20/20 15:54 Dilaudid IVPUSH 06/20/20 15:53 1 mg ONETIME ONE Administration Sodium Chloride 1,000 mls @ 1,000 mls/hr 06/20/20 12:27 06/20/20 12:52 Normal Saline IV 06/20/20 13:26 1,000 mls/hr .BOLUS STA Administration Metronidazole 500 mg/ Premix 100 mls @ 100 mls/hr 06/20/20 15:09 IV 06/20/20 16:08 ONETIME ONE Levofloxacin/Dextrose 500 mg/ 100 mls @ 100 mls/hr 06/20/20 15:10 06/20/20 15:23 Premix IV 06/20/20 16:09 100 mls/hr ONETIME ONE Administration Lidocaine HCl Confirm 06/20/20 15:49 Xylocaine-Mpf 1% Administered 06/20/20 15:50 Dose 4 mls @ as directed .ROUTE .STK-MED ONE Iopamidol 100 ml 06/20/20 13:19 06/20/20 14:38 Isovue-300 (61%) IVPUSH 06/20/20 13:20 100 ml ONETIME ONE Administration Ketamine HCl Confirm 06/20/20 15:57 Ketalar Administered 06/20/20 15:58 Dose 500 mg .ROUTE .STK-MED ONE Midazolam HCl Confirm 06/20/20 16:03 Versed 1 Mg/Ml Administered 06/20/20 16:04 Dose 2 mg .ROUTE .STK-MED ONE Ondansetron HCl 4 mg 06/20/20 12:27 06/20/20 12:52 Zofran IVPUSH 06/20/20 12:28 4 mg ONETIME ONE Administration Ondansetron HCl Confirm 06/20/20 15:49 Zofran Administered 06/20/20 15:50 Dose 4 mg .ROUTE .STK-MED ONE Pantoprazole Sodium 40 mg 06/20/20 15:16 06/20/20 15:32 Protonix Iv IVPUSH 06/20/20 15:17 40 mg ONETIME ONE Administration Propofol Confirm 06/20/20 15:47 Diprivan 20 Ml Administered 06/20/20 15:48 Dose 200 mg .ROUTE .STK-MED ONE Rocuronium [place] Confirm 06/20/20 15:49 Zemuron Administered 06/20/20 15:50 Dose 50 mg .ROUTE .STK-MED ONE - Re-Assessments/Exams Free Text/Narrative Re-Assessment/Exam: 06/20/20 16:28 I ordered an IV NS 1L bolus, zofran 4mg IV, dilaudid 1mg IV, labs, UA and a CT of her abdomen and pelvis with IV and oral contrast. She could not drink contrast so I had CT take her and she was having more pain so I ordered more dilaudid 1mg IV. Her CBC was negative. Her K was low at 3.3. Her anion gap was elevated at 15.3. Her creatinine was elevated at 1.1. Her AST is elevated at 38. Her ALT is elevated at 66. Her troponin is negative. Her UA shows no UTI. Her CT shows small amount of free air with thickening of gastro duodenal region. Upper gastrointestinal perforation suspected. Cholelithiasis. Small amount of free fluid throughout abdomen and pelvis. I called Dr Ivey and he came to see the patient. I have ordered flagyl and levaquin. I did a rapid COVID 19 swab and it was negative. Departure - Departure Time of Disposition: 16:40 Disposition: DC/Tfer to [facility] Condition: Serious Clinical Impression: Perforated bowel - Discharge Information Sepsis Event Note (ED) - Evaluation Sepsis Screening Result: No Definite Risk - Focused Exam Vital Signs: Vital Signs Temp Pulse Resp BP Pulse Ox 06/20/20 16:05 98.4 F 100 14 98/56 L 100 06/20/20 15:03 77 16 110/74 96 06/20/20 12:16 96.3 F L 139 H 24 H 143/97 H 94 L - My Orders Last 24 Hours: My Active Orders 06/20/20 12:27 Abdomen Pelvis w Cont [CT] Stat Sodium Chloride 0.9% [Saline Flush] 10 ml FLUSH ASDIRECTED PRN Peripheral IV Insertion Adult [OM.PC] Stat 06/20/20 12:28 Peripheral IV Care [RC] . DIRECTED ED Antiemetic Medication Reflex [OM.PC] Stat 06/20/20 13:19 Sodium Chloride 0.9% [Saline Flush] 10 ml FLUSH ONETIME PRN 06/20/20 13:21 EKG Documentation Completion [RC] ASDIRECTED EKG 12 Lead [EK] Stat 06/20/20 15:37 Admission Status [Patient Status] [ADT] Routine Schedule Procedure [COMM] Stat - Assessment/Plan Last 24 Hours: My Active Orders 06/20/20 12:27 Abdomen Pelvis w Cont [CT] Stat Sodium Chloride 0.9% [Saline Flush] 10 ml FLUSH ASDIRECTED PRN Peripheral IV Insertion Adult [OM.PC] Stat 06/20/20 12:28 Peripheral IV Care [RC] . DIRECTED ED Antiemetic Medication Reflex [OM.PC] Stat 06/20/20 13:19 Sodium Chloride 0.9% [Saline Flush] 10 ml FLUSH ONETIME PRN 06/20/20 13:21 EKG Documentation Completion [RC] ASDIRECTED EKG 12 Lead [EK] Stat 06/20/20 15:37 Admission Status [Patient Status] [ADT] Routine Schedule Procedure [COMM] Stat
[2020-06-20] MEDS ORDERED: Succinylcholine/Sod PF 100 MG/5 ML SYRINGE IV ONE (16:12)
[2020-06-20] MEDS ORDERED: Lactated Ringers 1,000 ML ONE ×3 (16:30→16:46)
[2020-06-20] MEDS ORDERED: ePHEDrine 50 MG/ML SDV IVPUSH PRN (16:41)
[2020-06-20] MEDS ORDERED: HYDROmorphone 0.5 MG/0.5 ML Syringe IVPUSH PRN ×2 (16:41→23:12)
[2020-06-20] MEDS ORDERED: Ondansetron 4 MG/2 ML SDV IVPUSH PRN (16:41)
[2020-06-20] MEDS ORDERED: diphenhydrAMINE 50 MG/ML SDV IVPUSH PRN (16:41)
[2020-06-20] MEDS ORDERED: Albuterol 0.083% 2.5 MG/3 ML Neb Soln NEB ONE (16:41)
[2020-06-20] MEDS ORDERED: ePHEDrine 50 MG/ML SDV ONE (16:43)
[2020-06-20] MEDS ORDERED: HYDROmorphone 0.5 MG/0.5 ML Syringe ONE (16:44)
--- NOTE | 2020-06-20 18:01 | PCM.POSTAN ---
POST ANESTHESIA ASSESSMENT - MENTAL STATUS Mental Status: Alert - VITAL SIGNS Vital Signs: Last Vital Signs Temp 97.6 06/20/201744 Pulse 76 06/20/20 1745 Resp 16 06/20/201744 BP 105/65 06/20/201744 Pulse Ox 96% 06/20/201744 - RESPIRATORY Respiratory Status: Respiratory Rate WNL, Airway Patent, O2 Saturation Stable - CARDIOVASCULAR CV Status: Pulse Rate WNL, Blood Pressure Stable - GASTROINTESTINAL GI Status: No Symptoms - POST OP HYDRATION Hydration Status: Adequate & Stable
--- NOTE | 2020-06-20 18:11 | PCM.PRNOTE ---
- Free Text/Narrative Note: Operative Report Date: 06/20/2020 Operation: laparoscopic repair of perforated gastric ulcer Surgeon: Lion Ivey MD Findings: gross contamination of peritoneal cavity with gastric juices and peritonitis. A small perforation was noted at the anterior aspect of the gastric antrum. No biopsy was obtained. The perforation was closed primarily and an omental patch was secured for reinforcement. A 10 F DANICA drain was left anterior to the repair. Detailed Report: The patient was taken to the OR emergently. She was placed supine on the OR table and timeout was performed. General endotracheal anesthesia was administered. An NG tube was placed with over 400 cc output immediately. A aponte catheter was placed. The abdomen was prepped and draped in usual sterile fashion. A Veress needle was inserted at [place] point; gastric juices were aspirated on entry. The abdomen was insufflated to 15 mm Hg with CO2. Pneum operitoneum was aspirated at the umbilicus, and a 5 mm bladed trocar was placed at this site. The 5 mm 30 degree laparoscope was inserted. There was gross evidence of peritonitis with fibrinous exudate in the upper abdomen and several mL of light green fluid. a 12 mm port was placed at the left upper quadrant, and two 5 mm ports were placed on the patient's right side. Fluid was suctioned, and a liver retractor was set up and placed to hold the liver anteriorly. As soon as this was done, the site of perforation was clear; a small, bubbling defect at the anterior portion of the antrum, left of the falciform ligament. The hole was closed transversely with three interrupted 2-0 vicryl sutures using laparoscopic technique. Next, three 2-0 silk sutures were put in place through the stomach on either side of the closure. A tongue of omentum was draped over the closure and secured to the lesser omentum with a silk stitch. The previously placed silk sutures were then tied down, securing the omental tongue against the closure. Next, a 10 F DANICA drain was introduced into the abdomen and brought out through the right lateral port site. This was secured at the skin with silk suture after proper positioning of the drain anterior to the stomach. The 12 mm port site was closed at the level of fascia with 0 vicryl using the laparoscopic suture passer. Pneumoperitoneum was released, and skin incisions were closed with vicryl and dressed with dermabond. The patient tolerated the procedure well.
[2020-06-20] MEDS: fentaNYL 100 MCG/2 ML SDV IVPUSH PRN ×4 (18:45→21:02)
[2020-06-20] MEDS ORDERED: Sodium Chloride 0.9% 1,000 ML IV ONE (21:41)
[2020-06-20] MEDS: Morphine 2 MG/ML SYRINGE IVPUSH PRN (22:26)
[2020-06-20] MEDS: Heparin Sodium 5,000 Units/ML Vial SUBCUT SCH (22:29)
[2020-06-20] MEDS: Lactated Ringers 1,000 ML IV SCH (23:11)
[2020-06-21] MEDS: Morphine 2 MG/ML SYRINGE IVPUSH PRN ×2 (00:47→02:47)
[2020-06-21] MEDS: HYDROmorphone 1 MG/ML Syringe IVPUSH PRN ×10 (04:35→22:46)
--- NOTE | 2020-06-21 08:00 | PCM48HPAN ---
Post Anesthesia Note - EVALUATION WITHIN 48HRS OF ANESTHETIC Vital Signs in Normal Range: Yes Patient Participated in Evaluation: Yes Respiratory Function Stable: Yes Airway Patent: Yes Cardiovascular Function Stable: Yes Hydration Status Stable: Yes Pain Control Satisfactory: No (States has been in severe pain all night) Nausea and Vomiting Control Satisfactory: Yes Mental Status Recovered: Yes Vital Signs: Last Vital Signs Temp 98.3 F 06/20/20 20:00 Pulse 90 06/21/20 07:01 Resp 14 06/20/20 20:00 BP 117/54 L 06/21/20 07:01 Pulse Ox 93 L 06/21/20 07:01
--- NOTE | 2020-06-21 08:17 | PCM.SN.2 ---
- Free Text/Narrative Note: POD 1 s/p laparoscopic repair of perforated gastric ulcer Overnight: pain not well controlled. Post-op EKG shows evidence of transient atrial fibrillation, though patient has appeared to be in normal sinus rhythm overnight on telemetry. Bolused 1L crystalloid. VSS, good urine output. S: uncomfortable with significant abdominal pain, though better than earlier. O: AF-VSS, UOP > 30 cc/hr. NG output ~ 300 cc, bilious, overnight. DANICA with minimal serous drainage. Lab work is unremarkable Mild distress NG tube in place with dark green output Abd soft, appropriately tender Aponte in place with jordan urine A: Overall appears to be doing well, but still has pain control issues and report of transient post-operative arrhythmia. Needs continued bowel rest, NG decompression, PPI treatment. P: -increase dilaudid to 1.5 mg q2h prn, will increase as needed as patient has history of chronic pain, chronic opioid use. -IS, OOB to chair -LR @ 100 cc/hr. repeat EKG this morning to confirm NSR. Continue telemetry. -NPO, ice chips okay for comfort. Continue NG decompression, LIWS. Protonix 40 mg IV BID. Plan for empiric H pylori triple therapy once patient is tolerating PO. -Continue aponte catheter; plan for removal this afternoon if urine output remains adequate. -heparin SC 5,000 u tid for DVT ppx. SCDs. -okay for floor status with telemetry later today. This patient meets inpatient criteria due to need for bowel rest, NG decompression, IV medication, and monitoring in the post-operative setting.
[2020-06-21] MEDS: Pantoprazole 40 MG Vial IVPUSH SCH ×2 (08:36→20:38)
[2020-06-21] MEDS ORDERED: Pantoprazole 40 MG in Sodium Chloride 0.9% 100 ML IV SCH (09:00)
[2020-06-21] MEDS: Lactated Ringers 1,000 ML IV SCH ×2 (11:03→20:43)
[2020-06-21] MEDS: HYDROmorphone 0.5 MG/0.5 ML Syringe IVPUSH PRN ×5 (14:37→22:48)
[2020-06-21] MEDS ORDERED: Sodium Chloride 0.9% 1,000 ML IV ONE (14:42)
[2020-06-22] MEDS: HYDROmorphone 1 MG/ML Syringe IVPUSH PRN ×9 (00:43→22:20)
[2020-06-22] MEDS: HYDROmorphone 0.5 MG/0.5 ML Syringe IVPUSH PRN ×10 (00:44→22:22)
[2020-06-22] MEDS: Lactated Ringers 1,000 ML IV SCH (04:56)
[2020-06-22] MEDS ORDERED: Ondansetron 4 MG in Sodium Chloride 0.9% 50 ML IV PRN (07:58)
--- NOTE | 2020-06-22 08:07 | PCM.SN.2 ---
- Free Text/Narrative Note: POD 2 s/p laparoscopic repair of perforated gastric ulcer Overnight: no acute events, reports nausea and continued pain S: rough night, inadequate pain control. Got out of bed to chair for a few hours yesterday afternoon. Reports sore throat. O: AF-VSS, UOP > 30 cc/hr. NG output ~ 300 cc, clearing up. DANICA with minimal serous drainage. No new labs Mild distress NG tube in place with light green output Abd soft, appropriately tender, incision sites clean, dry, intact DANICA drain with serous output Aponte in place with jordan urine A: Overall appears to be doing well, but still has pain control issues Needs continued bowel rest, NG decompression, PPI treatment. P: -add oral oxycodone for pain control -IS, OOB to chair. PT/OT consulted. -switch to maintenance fluid at 100 cc/hr. Continue telemetry. -NPO, ice chips okay for comfort. Add chloraseptic for sore throat. Continue NG decompression, LIWS. Okay to clamp tube when administering oral medication. Protonix 40 mg IV BID. Plan for empiric H pylori triple therapy starting today. -Remove aponte catheter, follow up trial of void. -heparin SC 5,000 u tid for DVT ppx. SCDs. -okay for floor status with telemetry. This patient meets inpatient criteria due to need for bowel rest, NG decompression, IV medication, and monitoring in the post-operative setting. Per case management, she has refused the offer for assistance with smoking cessation.
[2020-06-22] MEDS: Pantoprazole 40 MG Vial IVPUSH SCH ×2 (08:57→20:00)
[2020-06-22] MEDS: metroNIDAZOLE 500 MG Tab PO SCH ×2 (09:06→19:56)
[2020-06-22] MEDS: oxyCODONE 5 MG Tab PO PRN ×3 (09:06→17:32)
[2020-06-22] MEDS: D5 1/2 NS w/ 20 mEq/L KCl 1,000 ML IV SCH ×2 (09:12→19:53)
[2020-06-22] MEDS: Phenol 1.4% Oral Spray 177 ML Bottle MUCMEM PRN ×2 (09:20→15:01)
[2020-06-22] MEDS: Hydrochlorothiazide 12.5 MG Cap PO SCH (13:34)
[2020-06-22] MEDS: Heparin Sodium 5,000 Units/ML Vial SUBCUT SCH ×2 (13:35→19:59)
[2020-06-23] MEDS: oxyCODONE 5 MG Tab PO PRN ×6 (00:21→20:16)
[2020-06-23] MEDS: HYDROmorphone 0.5 MG/0.5 ML Syringe IVPUSH PRN ×6 (01:55→22:49)
[2020-06-23] MEDS: Heparin Sodium 5,000 Units/ML Vial SUBCUT SCH ×4 (04:24→20:05)
[2020-06-23] MEDS: D5 1/2 NS w/ 20 mEq/L KCl 1,000 ML IV SCH ×2 (05:51→17:13)
--- NOTE | 2020-06-23 07:21 | PCM.SN.2 ---
- Free Text/Narrative Note: POD 3 s/p laparoscopic repair of perforated gastric ulcer Overnight: I&O cath for urinary retention with 600 cc, subsequently able to void spontaneously. NG was left off suction overnight without issue. No flatus. S: better pain control, though still with significant pain. No nausea or bloating, but not passing flatus. O: AF-VSS DANICA with minimal serous drainage. No new labs Mild distress Appears diaphorectic NG tube in place with light green output Abd lower abdomen, more on left side, appears cellulitic. Otherwise soft, appropriately tender, incision sites clean, dry, intact DANICA drain with serous output Skin warm, well perfused, no LE edema A: Pain issues with apparent cellulitis at lower abdomen. Awaiting return of bowel function. P: -no changes to pain regimen for now -IS, OOB to chair. PT/OT consulted. -Continue telemetry. -repeat CBC, BMP this AM -NPO, ice chips okay for comfort. Chloraseptic for sore throat. Continue NG decompression, LIWS. Okay to clamp tube when administering oral medication. If gastric residual this morning is minimal, the NG may be able to be removed later today. Protonix 40 mg IV BID. Empiric H pylori triple therapy -add IV clindamycin for abdominal wall cellulitis -heparin SC 5,000 u tid for DVT ppx. SCDs. -okay for floor status with telemetry. This patient meets inpatient criteria due to need for bowel rest, NG decompression, IV medication, and monitoring in the post-operative setting. Per case management, she has refused the offer for assistance with smoking cessation.
[2020-06-23] MEDS: metroNIDAZOLE 500 MG Tab PO SCH ×2 (08:00→20:05)
[2020-06-23] MEDS: Clindamycin Phosphate in D5W 900 MG in Premix Bag 1 BAG IV SCH ×6 (08:01→20:06)
[2020-06-23] MEDS: Hydrochlorothiazide 12.5 MG Cap PO SCH (08:01)
[2020-06-23] MEDS: Pantoprazole 40 MG Vial IVPUSH SCH ×2 (08:02→20:06)
[2020-06-23] MEDS: FLU VACC QS2020-21(6MOS UP)/PF 60 MCG/0.5 ML SYRINGE IM ONE (09:40)
[2020-06-23] MEDS: HYDROmorphone 1 MG/ML Syringe IVPUSH PRN ×3 (10:19→22:49)
[2020-06-23] MEDS: Ondansetron 4 MG/2 ML SDV IVPUSH PRN (20:06)
[2020-06-24] MEDS: oxyCODONE 5 MG Tab PO PRN ×5 (00:54→17:26)
[2020-06-24] MEDS: Clindamycin Phosphate in D5W 900 MG in Premix Bag 1 BAG IV SCH ×8 (00:55→19:15)
[2020-06-24] MEDS: HYDROmorphone 0.5 MG/0.5 ML Syringe IVPUSH PRN ×6 (03:11→23:58)
[2020-06-24] MEDS: D5 1/2 NS w/ 20 mEq/L KCl 1,000 ML IV SCH ×3 (03:17→23:17)
[2020-06-24] MEDS: HYDROmorphone 1 MG/ML Syringe IVPUSH PRN ×6 (03:44→23:57)
[2020-06-24] MEDS: Heparin Sodium 5,000 Units/ML Vial SUBCUT SCH ×3 (05:14→21:15)
--- NOTE | 2020-06-24 08:46 | PCM.SN.2 ---
- Free Text/Narrative Note: POD 4 s/p laparoscopic repair of perforated gastric ulcer S: complaining of worsening abdominal pain, neck pain. Denies nausea, vomiting, bloating. Tolerating clears. No flatus. Urinary retention with post void residual 700cc raising concern for bladder stretch injury. O: AF- Vitals in normal range- it seems HR 27 and SpO2 80% was entered into chart erroneously at 2 AM. DANICA drain with minimal serous output Ample urine output, aponte has been replaced Awake and alert, in mild distress 2 L NC with SpO2 in low 90% range Abdomen is distended, tympanitic, soft without rebound or guarding, cellulitis appears much improved, incision sites c/d/i No LE edema A: Appears to have ileus with continued reports of severe abdominal pain after laparoscopic repair of perforated gastric ulcer. Although it is early for an abscess to have manifested at this point, the patient has continued severe pain and distention- I suspect ileus. Clinically she appears improved and with normal vitals and lab work since her operation. P: CT abd/pelvis this morning with IV contrast and small amount of PO contrast to assess for ileus vs SBO vs early abscess. Continue aponte catheter due to urinary retention/ bladder stretch injury. -continue current pain regimen -IS, OOB, pulmonary toilet -mIVF @ 100 cc/hr -clear liquid diet -antibiotic treatment for H pylori and for abdominal wall cellulitis -IV PPI BID -heparin 5000 u SC tid, SCD for DVT ppx
[2020-06-24] MEDS: metroNIDAZOLE 500 MG Tab PO SCH ×2 (09:14→19:30)
[2020-06-24] MEDS: Hydrochlorothiazide 12.5 MG Cap PO SCH (09:14)
[2020-06-24] MEDS: Pantoprazole 40 MG Vial IVPUSH SCH ×2 (09:15→21:12)
[2020-06-24] MEDS ORDERED: Iopamidol 612 MG/ML 100 ML Bottle IVPUSH ONE (10:48)
[2020-06-24] MEDS ORDERED: Iopamidol 612 MG/ML 50 ML SDV IVPUSH ONE (10:51)
[2020-06-24] MEDS: Simethicone 80 MG Tab.Chew PO PRN ×2 (12:31→19:29)
[2020-06-24] MEDS: Ondansetron 4 MG/2 ML SDV IVPUSH PRN (21:08)
[2020-06-25] MEDS: Clindamycin Phosphate in D5W 900 MG in Premix Bag 1 BAG IV SCH ×8 (01:39→18:45)
[2020-06-25] MEDS: HYDROmorphone 1 MG/ML Syringe IVPUSH PRN ×6 (03:22→23:44)
[2020-06-25] MEDS: HYDROmorphone 0.5 MG/0.5 ML Syringe IVPUSH PRN ×6 (03:23→23:44)
[2020-06-25] MEDS: Heparin Sodium 5,000 Units/ML Vial SUBCUT SCH ×3 (05:46→20:44)
[2020-06-25] MEDS: Ondansetron 4 MG/2 ML SDV IVPUSH PRN (06:35)
[2020-06-25] MEDS: Pantoprazole 40 MG Vial IVPUSH SCH ×2 (08:21→20:42)
--- NOTE | 2020-06-25 08:39 | PCM.SN.2 ---
- Free Text/Narrative Note: POD 5 s/p laparoscopic repair of perforated gastric ulcer S: vomited overnight. Started passing flatus this morning. Minimal improvement in pain. CT yesterday shows evidence of ileus without sign of failed repair or abscess. Some LLL inflammatory changes and atelectasis with radiology report raising concern for LLL pneumonia- patient seems to be asymptomatic at this time. O: AF- Vitals in normal range DANICA drain with minimal serous output Ample urine output, aponte has been replaced for retention/stretch injury Awake and alert, no distress 1 L NC with SpO2 in low 90% range Abdomen is softer, less distended No LE edema A: Emesis overnight, but now reports passing some flatus. I think her ileus seems to be resolving as she is noticeably less distended, but if she develops nausea or urge to vomit again we will replaced the NG tube for decompression. P: NG decompression if N/V persist If she continues to improve, passing flatus/stool with less pain, will plan for drain removal and advancement of diet Continue aponte catheter due to urinary retention/ bladder stretch injury. -continue current pain regimen -IS, OOB, pulmonary toilet -mIVF @ 100 cc/hr -clear liquid diet -antibiotic treatment for H pylori and for abdominal wall cellulitis -IV PPI BID -heparin 5000 u SC tid, SCD for DVT ppx
[2020-06-25] MEDS: metroNIDAZOLE 500 MG Tab PO SCH ×2 (08:40→21:40)
[2020-06-25] MEDS: Hydrochlorothiazide 12.5 MG Cap PO SCH (08:40)
[2020-06-25] MEDS: D5 1/2 NS w/ 20 mEq/L KCl 1,000 ML IV SCH ×2 (09:23→18:45)
[2020-06-25] MEDS: Simethicone 80 MG Tab.Chew PO PRN ×2 (12:10→23:44)
[2020-06-26] MEDS: Clindamycin Phosphate in D5W 900 MG in Premix Bag 1 BAG IV SCH ×8 (01:38→19:06)
[2020-06-26] MEDS: HYDROmorphone 0.5 MG/0.5 ML Syringe IVPUSH PRN ×3 (04:22→11:15)
[2020-06-26] MEDS: HYDROmorphone 1 MG/ML Syringe IVPUSH PRN ×5 (04:23→23:48)
[2020-06-26] MEDS: Heparin Sodium 5,000 Units/ML Vial SUBCUT SCH ×3 (04:58→20:56)
[2020-06-26] MEDS: D5 1/2 NS w/ 20 mEq/L KCl 1,000 ML IV SCH (04:58)
[2020-06-26] MEDS: Pantoprazole 40 MG Vial IVPUSH SCH ×2 (08:32→20:56)
[2020-06-26] MEDS: metroNIDAZOLE 500 MG Tab PO SCH ×2 (09:10→20:51)
[2020-06-26] MEDS ORDERED: Promethazine 25 MG Tab PO PRN (10:47)
[2020-06-26] MEDS: oxyCODONE 5 MG Tab PO PRN ×3 (10:59→20:51)
[2020-06-26] MEDS: Hydrochlorothiazide 12.5 MG Cap PO SCH (10:59)
[2020-06-26] MEDS: Simethicone 80 MG Tab.Chew PO PRN (15:15)
[2020-06-27] MEDS: Clindamycin Phosphate in D5W 900 MG in Premix Bag 1 BAG IV SCH ×10 (01:06→19:45)
[2020-06-27] MEDS: oxyCODONE 5 MG Tab PO PRN ×6 (01:14→23:02)
[2020-06-27] MEDS: Simethicone 80 MG Tab.Chew PO PRN (03:57)
[2020-06-27] MEDS: HYDROmorphone 1 MG/ML Syringe IVPUSH PRN ×2 (04:02→06:20)
[2020-06-27] MEDS: Heparin Sodium 5,000 Units/ML Vial SUBCUT SCH ×3 (04:04→23:04)
[2020-06-27] MEDS: Docusate Sodium 100 MG Cap PO SCH ×2 (08:40→23:03)
[2020-06-27] MEDS: metroNIDAZOLE 500 MG Tab PO SCH ×2 (08:41→23:04)
[2020-06-27] MEDS: Polyethylene Glycol 3350 Powder 17 GM Packet PO SCH ×2 (08:41→23:04)
[2020-06-27] MEDS: Hydrochlorothiazide 12.5 MG Cap PO SCH (08:41)
[2020-06-27] MEDS ORDERED: Sucralfate 1 GM Tab PO SCH (11:00)
--- NOTE | 2020-06-27 11:52 | PCM.SN.2 ---
- Free Text/Narrative Note: POD 6 s/p laparoscopic repair of perforated gastric ulcer S: tolerating diet, passing flatus O: AF- Vitals in normal range DANICA drain with minimal serous output Ample urine output, aponte has been replaced for retention/stretch injury Awake and alert, no distress 1 L NC with SpO2 in low 90% range Abdomen is softer, less distended No LE edema A: Doing well overall with resolving ileus. P: remove DANICA drain remove aponte, follow up trial of void -continue current pain regimen -IS, OOB, pulmonary toilet -purvi -soft diet -antibiotic treatment for H pylori -IV PPI BID -heparin 5000 u SC tid, SCD for DVT ppx
--- NOTE | 2020-06-27 11:54 | PCM.SN.2 ---
- Free Text/Narrative Note: POD 7 s/p laparoscopic repair of perforated gastric ulcer S: some nausea overnight but otherwise no major issues. Complains of pain still. O: AF- Vitals in normal range Awake and alert, no distress 1 L NC with SpO2 in low 90% range Abdomen is soft and appropriately tender No LE edema A: Overall doing well, anticipate discharge to home tomorrow P: -switch from IV to oral medication -add sucralfate -IS, OOB, pulmonary toilet -soft diet -antibiotic treatment for H pylori and for abdominal wall cellulitis -IV PPI BID -heparin 5000 u SC tid, SCD for DVT ppx
[2020-06-27] MEDS: Pantoprazole 40 MG Tab.CR PO SCH (16:35)
[2020-06-27] MEDS: Sucralfate Suspension 1 GM/10 ML Cup PO SCH (18:09)
[2020-06-28] MEDS: Clindamycin Phosphate in D5W 900 MG in Premix Bag 1 BAG IV SCH ×4 (01:23→06:40)
[2020-06-28] MEDS ORDERED: HYDROmorphone 1 MG/ML Syringe IVPUSH ONE (02:22)
[2020-06-28] MEDS: Heparin Sodium 5,000 Units/ML Vial SUBCUT SCH ×3 (04:51→20:32)
[2020-06-28] MEDS: Pantoprazole 40 MG Tab.CR PO SCH ×2 (05:00→16:19)
[2020-06-28] MEDS: Sucralfate Suspension 1 GM/10 ML Cup PO SCH ×3 (06:20→16:19)
[2020-06-28] MEDS ORDERED: Bisacodyl 10 MG Supp RECTAL ONE (08:36)
--- NOTE | 2020-06-28 08:42 | PCM.SN.2 ---
- Free Text/Narrative Note: POD 8 laparoscopic repair of perforated gastric ulcer S: complaining of pain overnight. Does not like taking pills. Passing flatus, no stool. O: AF-VSS no acute distress Abd soft, nontender A: Appears to be doing well overall, but patient demands high dose narcotics. There is no evidence of postoperative complication based on vitals, physical exam, and imaging and labs from a few days ago. She is noncompliant with antibiotic treatment for H pylori as she feels these medications exacerbate her symptoms of nausea and abdominal pain. P: -no more IV narcotics. PRN oxycodone increased to 15 mg overnight -discontinue antibiotics- abdominal wall cellulitis has appeared to be resolved for several days now. She is not compliant with oral H pylori treatment -dulcolax suppository for BM -expect discharge to home this afternoon if patient looks well enough
[2020-06-28] MEDS: Polyethylene Glycol 3350 Powder 17 GM Packet PO SCH ×2 (09:42→21:58)
[2020-06-28] MEDS: Hydrochlorothiazide 12.5 MG Cap PO SCH (09:43)
[2020-06-28] MEDS: Docusate Sodium 100 MG Cap PO SCH ×2 (09:43→21:58)
[2020-06-28] MEDS ORDERED: Magnesium Citrate Solution 296 ML Bottle PO ONE ×2 (11:59→14:30)
[2020-06-28] MEDS: metroNIDAZOLE 500 MG Tab PO SCH (14:29)
[2020-06-28] MEDS ORDERED: HYDROmorphone 1 MG/ML Syringe IVPUSH PRN (16:27)
[2020-06-29] MEDS: Sucralfate Suspension 1 GM/10 ML Cup PO SCH ×2 (06:08→10:42)
[2020-06-29] MEDS: Pantoprazole 40 MG Tab.CR PO SCH (06:09)
[2020-06-29] MEDS: Heparin Sodium 5,000 Units/ML Vial SUBCUT SCH (06:13)
[2020-06-29] MEDS: Hydrochlorothiazide 12.5 MG Cap PO SCH (08:48)
[2020-06-29] MEDS: Docusate Sodium 100 MG Cap PO SCH (08:49)
[2020-06-29] MEDS: Polyethylene Glycol 3350 Powder 17 GM Packet PO SCH (08:49)
--- NOTE | 2020-06-29 08:54 | PCM.DCSUM1 ---
Discharge Summary - Hospital Course Free Text/Narrative:: Admitted from the ER and taken to OR emergently on 06/20/2020 for perforated gastric ulcer. A small perforation was noted at the anterior portion of the antrum. This was addressed with a laparoscopic approach. The perforation was closed primarily with vicryl suture, and an omental patch was placed and secured with silk suture. A DANICA drain was left in place over the repair. Postoperatively, the patient complained constantly about severe pain, which was a challenge to manage as she chronically takes NSAIDs and narcotics. An NG tube was left in place for 72 hours, at which time she began to pass flatus and the tube was removed. Her diet was slowly advanced. She was kept on protonix throughout her admission. Heparin was ordered for DVT ppx, although it is documented that at times the patient refused this medication. She was also started on triple therapy for H pylori empirically. Immediately postoperatively her abdominal wall appeared warm and red raising concern for cellulitis. She was placed on IV clindmycin which seemed to help this clear up immediately. She was kept on the IV antibiotic for a week. The patient did not tolerate oral flagyl and refused to take oral antibiotics. She was noncompliant throughout her hospital stay with medication. Due to her severe pain a CT scan was ordered on POD 4 which did not show any significant problem. Her DANICA drain never put very much out and this was removed on POD 5. She had abdominal distention and pain that seemed to be due to constipation likely from high dose narcotics. She was started on a bowel regimen which helped her to start having bowel movements. She was evaluated by physical and occupational therapy, and deemed fit for discharge to home on post-operative day 9. Diagnosis: Stroke: No - Discharge Data Discharge Date: 06/29/20 Discharge Disposition: Home, Self-Care 01 Condition: Good - Referral to Home Health Primary Care Physician: AMITA Bhat - Patient Summary/Data Operative Procedure(s) Performed: laparoscopic repair of perforated gastric ulcer Consults: Consultations 06/22/20 08:02 Consult to Physical Therapy [PT Evaluation and Treatment] [CONS] Routine 06/22/20 08:03 Consult to Occupational Therapy [OT Evaluation and Treatment] [CONS] Routine Recommended Follow-up Testing/Procedures: needs upper endoscopy - Patient Instructions Diet: Usual Diet as Tolerated Activity: No Lifting Over 10 Pounds Showering/Bathing: May Shower Wound/Incision Care: Keep Operative Site/Wound Site Clean and Dry Notify Provider of: Fever, Swelling and Redness, Drainage, Nausea and/or Vomiting - Discharge Plan *PRESCRIPTION DRUG MONITORING PROGRAM REVIEWED*: Not Applicable *COPY OF PRESCRIPTION DRUG MONITORING REPORT IN PATIENT SARTHAK: Not Applicable Prescriptions/Med Rec: Sucralfate [Carafate] 1 gm PO Q6H #20 tablet Docusate Sodium [Colace] 100 mg PO BID #40 cap polyethylene glycoL 3350 [MiraLAX] 17 gm PO BID #40 packet Ondansetron [Ondansetron ODT] 4 mg PO Q6H PRN #20 tab.rapdis PRN Reason: Nausea oxyCODONE 15 mg PO Q4H PRN #20 tab PRN Reason: Pain Pantoprazole Sodium [Protonix] 40 mg PO BID #60 tablet. Simethicone 125 mg PO Q6H PRN #20 tab.chew PRN Reason: Gas Home Medications: Home Meds Hydrochlorothiazide 12.5 mg PO DAILY 01/17/16 [History] Ondansetron [Zofran ODT] 4 mg PO Q4H 01/17/16 [History] Hydrocodone/Acetaminophen [Hydrocodone-Acetamin 5-325 mg] 1 each PO Q4HR PRN 06/20/20 [History] Docusate Sodium [Colace] 100 mg PO BID #40 cap 06/29/20 [Rx] Ondansetron [Ondansetron ODT] 4 mg PO Q6H PRN #20 tab.rapdis 06/29/20 [Rx] Pantoprazole Sodium [Protonix] 40 mg PO BID #60 tablet. 06/29/20 [Rx] Simethicone 125 mg PO Q6H PRN #20 tab.chew 06/29/20 [Rx] Sucralfate [Carafate] 1 gm PO Q6H #20 tablet 06/29/20 [Rx] oxyCODONE 15 mg PO Q4H PRN #20 tab 06/29/20 [Rx] polyethylene glycoL 3350 [MiraLAX] 17 gm PO BID #40 packet 06/29/20 [Rx] Oxygen Therapy Mode: Room Air Patient Handouts: Peptic Ulcer, Peptic Ulcer Eating Plan, Steps to Quit Smoking Forms: ED Department Discharge Referrals: Sabrina Bobby PA-C [Primary Care Provider] - Lion Ivey MD [Physician] - 07/05/20 1:45 pm (Please follow up with Dr. Ivey on at 145pm.) - Discharge Summary/Plan Comment DC Time >30 min.: Yes - Patient Data Vitals - Most Recent: Last Vital Signs Temp 36.5 C 06/29/20 04:23 Pulse 91 06/29/20 04:23 Resp 18 06/28/20 23:14 BP 157/92 H 06/29/20 04:23 Pulse Ox 96 06/29/20 04:23 Weight - Most Recent: 94.574 kg I&O - Last 24 hours: Intake & Output 06/28/20 06/29/20 06/29/20 22:59 06:59 14:59 Intake Total 1760 800 Output Total 500 1400 Balance 1260 -600 Med Orders - Current: Current Medications Docusate Sodium (Colace) 100 mg PO BID [facility] Last Admin: 06/28/20 21:58 Dose: Not Given Documented by: Heparin Sodium (Porcine) (Heparin Sodium) 5,000 units SUBCUT Q8H [facility] Last Admin: 06/29/20 06:13 Dose: 5,000 units Documented by: Hydrochlorothiazide (Hydrochlorothiazide) 12.5 mg PO DAILY [facility] Last Admin: 06/28/20 09:43 Dose: 12.5 mg Documented by: Hydromorphone HCl (Dilaudid) 1 mg IVPUSH Q4H PRN PRN Reason: Abdominal Pain Last Admin: 06/28/20 17:44 Dose: 1 mg Documented by: Ondansetron HCl (Zofran) 4 mg IVPUSH Q6H PRN PRN Reason: NAUSEA Last Admin: 06/25/20 06:35 Dose: 4 mg Documented by: Oxycodone HCl (Oxycodone) 15 mg PO Q4H PRN PRN Reason: Abdominal Pain Last Admin: 06/29/20 04:24 Dose: 15 mg Documented by: Pantoprazole Sodium (Protonix) 40 mg PO BIDAC [facility] Last Admin: 06/29/20 06:09 Dose: 40 mg Documented by: Phenol/Menthol (Chloraseptic Throat [place]) 0 ml MUCMEM Q2H PRN PRN Reason: Sore Throat Last Admin: 06/22/20 15:01 Dose: 1 spray Documented by: Polyethylene Glycol (Miralax) 17 gm PO BID [facility] Last Admin: 06/28/20 21:58 Dose: Not Given Documented by: Promethazine HCl (Phenergan) 25 mg PO Q6H PRN PRN Reason: Nausea/Vomiting Simethicone (Simethicone) 80 mg PO Q6H PRN PRN Reason: Gas Last Admin: 06/27/20 03:57 Dose: 80 mg Documented by: Sodium Chloride (Saline Flush) 10 ml FLUSH ASDIRECTED PRN PRN Reason: Keep Vein Open Last Admin: 06/20/20 12:52 Dose: 10 ml Documented by: Sucralfate (Carafate) 1 gm PO TIDAC [facility] Last Admin: 06/29/20 06:08 Dose: 1 gm Documented by: Discontinued Medications Albuterol (Proventil Neb Soln) 2.5 mg NEB ONETIME ONE Stop: 06/20/20 16:42 Last Admin: 06/21/20 07:50 Dose: Not Given Documented by: Bisacodyl (Dulcolax) 10 mg RECTAL ONETIME ONE Stop: 06/28/20 08:37 Last Admin: 06/28/20 09:44 Dose: 10 mg Documented by: Bupivacaine HCl/Epinephrine Bitart (Marcaine 0.5%/Epinephrine 1:200,000) Confirm Administered Dose 50 ml .ROUTE .STK-MED ONE Stop: 06/20/20 15:42 Last Admin: 06/20/20 17:18 Dose: 23 ml Documented by: Clarithromycin (Biaxin) 500 mg PO BID [facility] Last Admin: 06/27/20 23:03 Dose: Not Given Documented by: Dexamethasone (Dexamethasone) Confirm Administered Dose 20 mg .ROUTE .STK-MED ONE Stop: 06/20/20 15:50 Diatrizoate Meglum/Diatrizoate Sod (Gastrografin 37%) 120 ml PO ONETIME ONE Stop: 06/20/20 13:20 Last Admin: 06/20/20 14:38 Dose: 120 ml Documented by: Diphenhydramine HCl (Benadryl) 25 mg IVPUSH Q6H PRN PRN Reason: pruritis Stop: 06/20/20 23:00 Ephedrine Sulfate (Ephedrine Sulfate) 5 mg IVPUSH ASDIRECTED PRN PRN Reason: Hypotension Stop: 06/20/20 23:00 Ephedrine Sulfate (Ephedrine Sulfate) Confirm Administered Dose 50 mg .ROUTE .STK-MED ONE Stop: 06/20/20 16:44 Fentanyl (Sublimaze) Confirm Administered Dose 250 mcg .ROUTE .STK-MED ONE Stop: 06/20/20 15:56 Fentanyl (Sublimaze) 50 mcg IVPUSH Q5M PRN PRN Reason: Pain Stop: 06/20/20 23:00 Last Admin: 06/20/20 21:02 Dose: 50 mcg Documented by: Glycopyrrolate (Robinul) Confirm Administered Dose 0.8 mg .ROUTE .STK-MED ONE Stop: 06/20/20 17:25 Heparin Sodium (Porcine) (Heparin Sodium) 5,000 units SUBCUT Q8H ANAND Last Admin: 06/23/20 09:40 Dose: Not Given Documented by: Hydromorphone HCl (Dilaudid) 1 mg IVPUSH ONETIME ONE Stop: 06/20/20 12:30 Last Admin: 06/20/20 12:50 Dose: 1 mg Documented by: Hydromorphone HCl (Dilaudid) 1 mg IVPUSH ONETIME ONE Stop: 06/20/20 13:23 Last Admin: 06/20/20 13:26 Dose: 1 mg Documented by: Hydromorphone HCl (Dilaudid) 1 mg IVPUSH ONETIME ONE Stop: 06/20/20 14:53 Last Admin: 06/20/20 14:56 Dose: 1 mg Documented by: Hydromorphone HCl (Dilaudid) Confirm Administered Dose 1 mg .ROUTE .STK-MED ONE Stop: 06/20/20 15:52 Last Admin: 06/20/20 15:53 Dose: Not Given Documented by: Hydromorphone HCl (Dilaudid) 1 mg IVPUSH ONETIME ONE Stop: 06/20/20 15:53 Last Admin: 06/20/20 15:54 Dose: 1 mg Documented by: Hydromorphone HCl (Dilaudid) 0.5 mg IVPUSH ONETIME PRN PRN Reason: Pain Stop: 06/20/20 23:00 Last Admin: 06/20/20 18:02 Dose: 0.5 mg Documented by: Hydromorphone HCl (Dilaudid) Confirm Administered Dose 0.5 mg .ROUTE .STK-MED ONE Stop: 06/20/20 16:45 Hydromorphone HCl (Dilaudid) 0.5 mg IVPUSH Q4H PRN PRN Reason: Breakthrough Pain Last Admin: 06/21/20 02:01 Dose: 0.5 mg Documented by: Hydromorphone HCl (Dilaudid) 1 mg IVPUSH Q2H PRN PRN Reason: Abdominal Pain Last Admin: 06/21/20 06:34 Dose: 1 mg Documented by: Hydromorphone HCl (Dilaudid) 1.5 mg IVPUSH Q2H PRN PRN Reason: Pain Last Admin: 06/21/20 12:24 Dose: 1.5 mg Documented by: Hydromorphone HCl (Dilaudid) 1 mg IVPUSH Q2H PRN PRN Reason: Pain Last Admin: 06/27/20 06:20 Dose: 1 mg Documented by: Hydromorphone HCl (Dilaudid) 0.5 mg IVPUSH Q2H PRN PRN Reason: Pain Last Admin: 06/26/20 11:15 Dose: 0.5 mg Documented by: Hydromorphone HCl (Dilaudid) 1 mg IVPUSH ONETIME ONE Stop: 06/28/20 02:23 Last Admin: 06/28/20 02:34 Dose: 1 mg Documented by: Sodium Chloride (Normal Saline) 1,000 mls @ 1,000 mls/hr IV .BOLUS STA Stop: 06/20/20 13:26 Last Admin: 06/20/20 12:52 Dose: 1,000 mls/hr Documented by: Metronidazole 500 mg/ Premix 100 mls @ 100 mls/hr IV ONETIME ONE Stop: 06/20/20 16:08 Last Admin: 06/20/20 21:50 Dose: Not Given Documented by: Levofloxacin/Dextrose 500 mg/ (Premix) 100 mls @ 100 mls/hr IV ONETIME ONE Stop: 06/20/20 16:09 Last Admin: 06/20/20 15:23 Dose: 100 mls/hr Documented by: Lidocaine HCl (Xylocaine-Mpf 1%) Confirm Administered Dose 4 mls @ as directed .ROUTE .STK-MED ONE Stop: 06/20/20 15:50 Lactated Ringer's (Ringers, Lactated) Confirm Administered Dose 1,000 mls @ as directed .ROUTE .[facility] ONE Stop: 06/20/20 16:31 Lactated Ringer's (Ringers, Lactated) Confirm Administered Dose 1,000 mls @ as directed .ROUTE .[facility] ONE Stop: 06/20/20 16:44 Lactated Ringer's (Ringers, Lactated) Confirm Administered Dose 1,000 mls @ as directed .ROUTE .[facility] ONE Stop: 06/20/20 16:47 Lactated Ringer's (Ringers, Lactated) 1,000 mls @ 100 mls/hr IV ASDIRECTED [facility] Last Admin: 06/22/20 04:56 Dose: 100 mls/hr Documented by: Pantoprazole Sodium 40 mg/ (Sodium Chloride) 100 mls @ 200 mls/hr IV BID ANAND Sodium Chloride (Normal Saline) 1,000 mls @ 1,000 mls/hr IV ONETIME ONE Stop: 06/20/20 22:40 Last Admin: 06/20/20 22:00 Dose: 1,000 mls/hr Documented by: Sodium Chloride (Normal Saline) 1,000 mls @ 1,000 mls/hr IV ONETIME ONE Stop: 06/21/20 15:41 Last Admin: 06/21/20 15:18 Dose: 1,000 mls/hr Documented by: Ondansetron HCl 4 mg/ Sodium (Chloride) 52 mls @ 100 mls/hr IV Q6H PRN PRN Reason: Nausea Potassium Chloride/Dextrose/Sod Cl (D5 1/2 Ns W/ 20 Meq/L Kcl) 1,000 mls @ 100 mls/hr IV ASDIRECTED [facility] Last Admin: 06/26/20 04:58 Dose: 100 mls/hr Documented by: Clindamycin Phosphate 900 mg/ (Premix) 50 mls @ 94.34 mls/hr IV Q6H [facility] Last Admin: 06/28/20 06:40 Dose: 94.34 mls/hr Documented by: Influenza Virus Vaccine (Fluzone Quad Syringe) 60 mcg IM .ONCE ONE Stop: 06/21/20 10:46 Last Admin: 06/23/20 09:40 Dose: Not Given Documented by: Iopamidol (Isovue-300 (61%)) 100 ml IVPUSH ONETIME ONE Stop: 06/20/20 13:20 Last Admin: 06/20/20 14:38 Dose: 100 ml Documented by: Iopamidol (Isovue-300 (61%)) 100 ml IVPUSH ONETIME ONE Stop: 06/24/20 10:49 Last Admin: 06/24/20 11:16 Dose: 100 ml Documented by: Iopamidol (Isovue-300 (61%)) 25 ml IVPUSH ONETIME ONE Stop: 06/24/20 10:52 Last Admin: 06/24/20 11:16 Dose: 25 ml Documented by: Ketamine HCl (Ketalar) Confirm Administered Dose 500 mg .ROUTE .STK-MED ONE Stop: 06/20/20 15:58 Magnesium Citrate (Citrate Of Magnesia) 296 ml PO ONETIME ONE Stop: 06/28/20 12:00 Last Admin: 06/28/20 14:28 Dose: Not Given Documented by: Magnesium Citrate (Citrate Of Magnesia) 296 ml PO ONETIME ONE Stop: 06/28/20 14:31 Last Admin: 06/28/20 14:47 Dose: 296 ml Documented by: Metronidazole (Flagyl) 500 mg PO Q12H [facility]NA[facility] Last Admin: 06/28/20 14:29 Dose: Not Given Documented by: Midazolam HCl (Versed 1 Mg/Ml) Confirm Administered Dose 2 mg .ROUTE .STK-MED ONE Stop: 06/20/20 16:04 Miscellaneous Medication (Phenylephrine 1 Mg/10 Ml-Ns) Confirm Administered Dose 1 mg .ROUTE .STK-MED ONE Stop: 06/20/20 16:27 Miscellaneous Medication (Phenylephrine 1 Mg/10 Ml-Ns) 0 mg IVPUSH ONETIME ANAND Stop: 06/20/20 23:00 Miscellaneous Medication (Phenylephrine 1 Mg/10 Ml-Ns) Confirm Administered Dose 1 mg .ROUTE .STK-MED ONE Stop: 06/20/20 17:08 Morphine Sulfate (Morphine) 1 mg IVPUSH Q2H PRN PRN Reason: Pain (severe 7-10) Last Admin: 06/21/20 02:47 Dose: 1 mg Documented by: Neostigmine Methylsulfate (Neostigmine Methylsulfate) Confirm Administered Dose 5 mg .ROUTE .STK-MED ONE Stop: 06/20/20 17:25 Ondansetron HCl (Zofran) 4 mg IVPUSH ONETIME ONE Stop: 06/20/20 12:28 Last Admin: 06/20/20 12:52 Dose: 4 mg Documented by: Ondansetron HCl (Zofran) Confirm Administered Dose 4 mg .ROUTE .STK-MED ONE Stop: 06/20/20 15:50 Ondansetron HCl (Zofran) 4 mg IVPUSH ONETIME PRN PRN Reason: Nausea/Vomiting Stop: 06/20/20 23:00 Oxycodone HCl (Oxycodone) 5 mg PO Q4H PRN PRN Reason: Pain (moderate 4-6) Last Admin: 06/27/20 06:21 Dose: 5 mg Documented by: Oxycodone HCl (Oxycodone) 10 mg PO Q4H PRN PRN Reason: Pain (moderate 4-6) Last Admin: 06/27/20 23:02 Dose: 10 mg Documented by: Pantoprazole Sodium (Protonix Iv) 40 mg IVPUSH ONETIME ONE Stop: 06/20/20 15:17 Last Admin: 06/20/20 15:32 Dose: 40 mg Documented by: Pantoprazole Sodium (Protonix Iv) 40 mg IVPUSH BID ANAND Last Admin: 06/26/20 20:56 Dose: 40 mg Documented by: Propofol (Diprivan 20 Ml) Confirm Administered Dose 200 mg .ROUTE .STK-MED ONE Stop: 06/20/20 15:48 Rocuronium [place] (Zemuron) Confirm Administered Dose 50 mg .ROUTE .STK-MED ONE Stop: 06/20/20 15:50 Sodium Chloride (Saline Flush) 10 ml FLUSH ONETIME PRN PRN Reason: IV FLUSH Last Admin: 06/20/20 14:38 Dose: 10 ml Documented by: Sucralfate (Carafate) 1 gm PO TIDAC ANAND Last Admin: 06/27/20 10:10 Dose: 1 gm Documented by:
[2020-06-29 09:07] VITALS: BP 143/76; PULSE 93
[2020-06-29] MEDS: FLU VACC QS2020-21(6MOS UP)/PF 60 MCG/0.5 ML SYRINGE IM ONE (10:39)
== END 2020-06-29 11:01 | disposition home or self-care (01) | DRG 222 ==
LOC: JD.ED 12:11 → JD.SDS 15:39 → JD.ICU 17:51 → JD.MS 06-22 06:57 → JD.ICU 06-22 07:08 → JD.MS 06-27 11:29
PROVIDERS: ADMIT Surgery; ATTEND Surgery
PROC: 0DQ64ZZ Repair Stomach, Percutaneous Endoscopic Approach (ICD-10-PCS; principal; 2020-06-20)
PROC: 3E02340 Introduction of Influenza Vaccine into Muscle, Percutaneous Approach (ICD-10-PCS; 2020-06-29)
DX: K25.5 Chronic or unspecified gastric ulcer with perforation (principal); K65.9 Peritonitis, unspecified; L03.311 Cellulitis of abdominal wall; Z20.828 Contact with and (suspected) exposure to other viral communicable diseases; I10 Essential (primary) hypertension; J45.909 Unspecified asthma, uncomplicated; K56.7 Ileus, unspecified; K59.03 Drug induced constipation; T40.605A Adverse effect of unspecified narcotics, initial encounter; R33.9 Retention of urine, unspecified; F17.200 Nicotine dependence, unspecified, uncomplicated; Z23 Encounter for immunization; Z90.710 Acquired absence of both cervix and uterus; Z88.0 Allergy status to penicillin; Z88.2 Allergy status to sulfonamides; Z79.899 Other long term (current) drug therapy; Z98.49 Cataract extraction status, unspecified eye
CPT/HCPCS: 00790; 36415; 51701; 51702; 51798; 71260; 74177; 80048; 80053; 81001; 83690; 84484; 85025; 90686; 93005; 94760; 96361; 96374; 96375; 96376; 97110-GP; 97116-GP; 97161-GP; 97530-GP; 99285; 99285-25; A9270-GY; C9113; G0008; J0330; J1100; J1170; J1644; J1956; J2001; J2250; J2270; J2370; J2405; J2704; J2710; J3010; J3480; J3490; J7030; J7120; Q9963; Q9967; U0002

== ENCOUNTER 2020-07-13 07:28 | Day surgery (SDC) | payer BC ==
[~2020-07-13 07:28] MED LIST: Lactated Ringers 1,000 ML IV SCH; Lidocaine 1%/Sod Bicarbonate in NS 8.4% 1 ML Syringe IDERM PRN; Sodium Chloride 0.9% 10 ML Syringe FLUSH PRN
--- NOTE | 2020-07-13 08:13 | PCM.PREANE ---
Preanesthetic Assessment - Procedure Proposed Procedure: EGD - Anesthesia/Transfusion/Family Hx Anesthesia History: Prior Anesthesia Without Reaction Family History of Anesthesia Reaction: No Transfusion History: Prior Transfusion Without Reaction Intubation History: Unknown - Review of Systems General: No Symptoms Pulmonary: Other (COPD- current smoker, denies shortness of breath, sleeps with multiple pillows under head ) Cardiovascular: No Symptoms Gastrointestinal: No Symptoms Neurological: No Symptoms Other: Reports: None - Physical Assessment Vital Signs: Last Vital Signs Temp 36.3 C 07/13/20 07:20 Pulse 110 H 07/13/20 07:20 Resp 20 07/13/20 07:20 BP 147/90 H 07/13/20 07:20 Pulse Ox 98 07/13/20 07:20 Height: 1.65 m Weight: 88.904 kg ASA Class: 3 Mental Status: Alert & Oriented x3 Airway Class: Mallampati = 3 Dentition: Reports: Missing Tooth/Teeth (right lower, numerous fillings ) Thyro-Mental Finger Breadths: 3 Mouth Opening Finger Breadths: 4 ROM/Head Extension: Full Lungs: Other (diminished in bases, no crackles, other LS clear ) Cardiovascular: Regular Rate (e), Regular Rhythm - Allergies Allergies/Adverse Reactions: Allergies Allergy/AdvReac Type Severity Reaction Status Date / Time Penicillins Allergy Mild Cannot Verified 07/12/20 15:50 Remember Sulfa (Sulfonamide Allergy Mild Cannot Verified 07/12/20 15:50 Antibiotics) Remember - Blood Product(s) Available: None - Anesthesia Plan Pre-Op Medication Ordered: Anxiolytic (IV versed ) - Acknowledgements Anesthesia Type Planned: MAC Pt an Appropriate Candidate for the Planned Anesthesia: Yes Alternatives and Risks of Anesthesia Discussed w Pt/Guardian: Yes Pt/Guardian Understands and Agrees with Anesthesia Plan: Yes PreAnesthesia Questionnaire HEENT History: Reports: Cataract Cardiovascular History: Reports: Hypertension Respiratory History: Reports: Asthma Gastrointestinal History: Reports: GERD, Other (See Below) Other Gastrointestinal History: gastric ulcer Genitourinary History: Reports: None WOOL MIXER History: Reports: None Musculoskeletal History: Reports: Fracture Psychiatric History: Reports: Other (See Below) Other Psychiatric History: chronic pain Endocrine/Metabolic History: Reports: Obesity/BMI 30+ Hematologic History: Reports: None Immunologic History: Reports: None Oncologic (Cancer) History: Reports: None Dermatologic History: Reports: None - Infectious Disease History Infectious Disease History: Reports: None - Past Surgical History Head Surgeries/Procedures: Reports: None HEENT Surgical History: Reports: Cataract Surgery, Laser Surgery Cardiovascular Surgical History: Reports: None Respiratory Surgical History: Reports: None GI Surgical History: Reports: Hernia Repair/Other, Other (See Below) Other GI Surgeries/Procedures: hernia repair, abdominal surgery Female Surgical History: Reports: Hysterectomy Male Surgical History: Reports: None Neurological Surgical History: Reports: Lumbar Spine Musculoskeletal Surgical History: Reports: Other (See Below) Other Musculoskeletal Surgeries/Procedures:: left foot surgery with hardware intact Oncologic Surgical History: Reports: None - SUBSTANCE USE Tobacco Use Status *Q: Current Every Day Tobacco User Recreational Drug Use History: No - HOME MEDS Home Medications: Home Meds Hydrochlorothiazide 12.5 mg PO DAILY 01/17/16 [History] Ondansetron [Zofran ODT] 4 mg PO Q4H PRN 01/17/16 [History] Hydrocodone/Acetaminophen [Hydrocodone-Acetamin 5-325 mg] 1 each PO Q4HR PRN 06/20/20 [History] Pantoprazole Sodium [Protonix] 40 mg PO BID #60 tablet.dr 06/29/20 [Rx] Simethicone 125 mg PO Q6H PRN #20 tab.chew 06/29/20 [Rx] oxyCODONE 15 mg PO Q4H PRN #20 tab 06/29/20 [Rx] Amoxicillin 500 mg PO BID #30 capsule 07/03/20 [Rx] Levofloxacin 750 mg PO DAILY #5 tablet 07/07/20 [Rx] polyethylene glycoL 3350 [MiraLAX] 17 gm PO BID PRN 07/12/20 [History] - CURRENT (IN HOUSE) MEDS Current Meds: Current Medications Lactated Ringer's (Ringers, Lactated) 1,000 mls @ 125 mls/hr IV ASDIRECTED ANAND Stop: 07/13/20 23:00 Lidocaine/Sodium Bicarbonate (Buffered Lidocaine 1% In Ns 8.4%) 0.25 ml IDERM ONETIME PRN PRN Reason: Prior to IV Start Stop: 07/13/20 18:00 Sodium Chloride (Saline Flush) 10 ml FLUSH ASDIRECTED PRN PRN Reason: Keep Vein Open Stop: 07/13/20 18:00
[2020-07-13] MEDS ORDERED: Midazolam 1 MG/ML 2 ML SDV IVPUSH PRN (08:48)
[2020-07-13] MEDS ORDERED: Propofol 200 MG/20 ML SDV ONE ×3 (08:56→09:30)
[2020-07-13] MEDS ORDERED: Lidocaine 1% 4 ML ONE ×2 (08:56→08:57)
[2020-07-13] MEDS ORDERED: Midazolam 1 MG/ML 2 ML SDV ONE (08:56)
--- NOTE | 2020-07-13 09:38 | PCM.PRNOTE ---
- Free Text/Narrative Note: Date: 07/13/2020 Procedure: diagnostic esophagogastroduodenoscopy Indication: history of perforated gastric ulcer 3 weeks ago, with persistent abdominal pain Endoscopist: Lion Ivey MD Findings: The stomach was a challenge to insufflate as the patient was lightly sedated and heaving with a borderline oxygen saturation. The duodenum was well visualized and the distal portion had a diffuse superficial white coating. No ulcers were noted. The gastric mucosa appeared normal; no healing ulcer or abnormal lesion concerning for malignancy was identified. The Z line appeared normal. Biopsies of duodenal and gastric mucosa were obtained with cold forceps. Detailed Report: The patient was taken to the endoscopy suite and placed in left lateral decubitus position. Time out was performed and monitored sedation initiated. A bite block was placed. The endoscope was inserted orally and advanced to the second portion of the duodenum with ease. The duodenal mucosa appeared to have a white coating which seemed consistent with medication effect. A biopsy with cold forceps was obtained from the proximal duodenum. The stomach appeared relatively normal. A sample of the gastric antral mucosa was obtained. On retroflexion within the stomach, no hiatal hernia was noted. The Z line appeared normal. No other esophageal pathology was noted as the scope was withdrawn. Air was suctioned from the stomach prior to removal of the scope. The patient tolerated the procedure well.
--- NOTE | 2020-07-13 09:53 | PCM.POSTAN ---
POST ANESTHESIA ASSESSMENT - MENTAL STATUS Mental Status: Alert - VITAL SIGNS Vital Signs: 141/90, 95 - 2 L NC, 104, 20, 98.2 Last Vital Signs Temp 36.3 C 07/13/20 07:20 Pulse 110 H 07/13/20 07:20 Resp 20 07/13/20 07:20 BP 147/90 H 07/13/20 07:20 Pulse Ox 98 07/13/20 07:20 - RESPIRATORY Respiratory Status: Respiratory Rate WNL, Airway Patent, O2 Saturation Stable, Supplemental Oxygen - CARDIOVASCULAR CV Status: Pulse Rate WNL, Blood Pressure Stable - GASTROINTESTINAL GI Status: No Symptoms - PAIN Pain Score: 8 (right shoulder, chronic pain, she states she will take her home prescribed medication. ) - POST OP HYDRATION Hydration Status: Adequate & Stable
[2020-07-13 10:26] VITALS: BP 153/91; PULSE 100
== END 2020-07-13 10:21 | disposition home or self-care (01) ==
LOC: JD.SDS 07:28
PROVIDERS: ATTEND Surgery
DX: K31.89 Other diseases of stomach and duodenum (principal); J44.9 Chronic obstructive pulmonary disease, unspecified; F17.200 Nicotine dependence, unspecified, uncomplicated; Z88.0 Allergy status to penicillin; Z88.2 Allergy status to sulfonamides; I10 Essential (primary) hypertension; Z87.19 Personal history of other diseases of the digestive system; Z98.890 Other specified postprocedural states
CPT/HCPCS: 43239; J2001; J2250; J2704; J7120; 00731